=== PATIENT | male | born 1960 | race Caucasian/White ===

== ENCOUNTER 2025-02-19 10:47 | Emergency (ER) | payer MEDICAID, SELFPAY ==
[2025-02-19 10:50] VITALS: BMI 16.0
[2025-02-19 10:57] VITALS: BP 162/100; PULSE 93; RESP 16; TEMP 36.5; O2SAT 96
--- NOTE | 2025-02-19 11:07 | XR_ITS ---
Examination: Shoulder,right, 3 views Technique: Shoulder AP internal rotation, AP external rotation, Y view shoulder, 3 views Exam date and time :February 19, 2025 1109 hours INDICATIONS: Patient fell 4 weeks ago with injury of the shoulder, shoulder pain. FINDINGS: No fracture or dislocation Moderate osteoarthritis glenohumeral joint IMPRESSION: No fracture or dislocation
--- NOTE | 2025-02-19 11:12 | EDNOTE_ITS ---
<Statement entered by Geovanna Jackson MD - 02/19/25 17:57> As co-signing physician, I was present and available for consult prn. I concur with the plan and care as documented by the midlevel provider. Upper Extremity Injury RME/HPI General Chief Complaint: Extremity Injury, Upper Stated Complaint: BILATERAL SHOULDER PAIN Time Seen by Provider: 02/19/25 11:07 Source: patient Arrival date/time: 02/19/25 10:47 65-year-old male with no known medical history presents to the emergency room with a chief complaint of right-sided shoulder pain after a fall that occurred 1 month ago. Mode of arrival: ambulatory Limitations: no limitations Related Data Allergies Allergy/AdvReac Type Severity Reaction Status Date / Time No Known Allergies Allergy Verified 02/19/25 10:50 Review of Systems Review of Systems Systems Reviewed: All systems reviewed, normal except as documented Constitutional Constitutional: Reports system reviewed and no additional complaints, except as documented, Denies fatigue, Denies fever(s), Denies headache(s) and Denies weakness Eyes Eyes: Reports system reviewed and no additional complaints, except as documented, Denies blurry vision and Denies change in vision ENT Ears, Nose, Mouth, and Throat: Reports system reviewed and no additional complaints, except as documented, Denies otalgia, Denies headache(s), Denies nasal congestion, Denies throat swelling and Denies vertigo Cardiovascular Cardiovascular: Reports system reviewed and no additional complaints, except as documented, Denies chest pain, Denies dyspnea and Denies dyspnea on exertion Respiratory Respiratory: Reports system reviewed and no additional complaints, except as documented, Denies chest congestion, Denies cough, Denies dyspnea, Denies dyspnea on exertion and Denies wheezing Gastrointestinal Gastrointestinal: Reports system reviewed and no additional complaints, except as documented, Denies abdominal pain, Denies cramping, Denies nausea and Denies vomiting Genitourinary Genitourinary: Reports system reviewed and no additional complaints, except as documented, Denies dysuria and Denies hematuria Musculoskeletal Musculoskeletal: Reports system reviewed and no additional complaints, except as documented, Reports arthralgias, Denies back pain, Reports joint swelling and Reports limited range of motion Integumentary/Breasts Skin/Breast: Reports system reviewed and no additional complaints, except as documented and Denies wounds Neurologic Neurologic: Reports system reviewed and no additional complaints, except as documented, Denies confusion, Denies headache(s), Denies lack of coordination, Denies vertigo and Denies weakness Psychiatric Psychiatric: Reports system reviewed and no additional complaints, except as documented, Denies anxiety, Denies confusion, Denies depression, Denies paranoia, Denies suicidal ideation and Denies tactile hallucinations Endocrine Endocrine: Reports system reviewed and no additional complaints, except as documented and Denies fatigue Hematologic/Lymphatic Hematologic/Lymphatic: Reports system reviewed and no additional complaints, except as documented and Denies lymphadenopathy Allergic/Immunologic Allergic/Immunologic: Reports system reviewed and no additional complaints, except as documented, Denies throat swelling, Denies urticaria and Denies wheezing Past Medical History Social History SMOKING STATUS: Current every day smoker ED Exam General Limitations: Present no limitations General appearance: Present alert and in no apparent distress Head Head exam: Present atraumatic Eye Eye exam: Present normal appearance, PERRL and EOMI ENT ENT exam: Present normal exam, normal oropharynx and mucous membranes moist Neck Neck exam: Present normal inspection, full ROM and trachea midline Chest Chest inspection: Present normal inspection and symmetric chest wall rise Respiratory Respiratory exam: Present normal lung sounds bilaterally Cardiovascular Cardiovascular exam: Present regular rate, normal rhythm and normal heart sounds Abdominal Exam Abdominal exam: Present soft and normal bowel sounds Extremities Exam Extremities exam: Present normal inspection and full ROM Expanded Upper Extremity Exam Shoulder exam: Present tenderness and swelling; Absent full ROM Arm exam: Present normal inspection Elbow exam: Present normal inspection Forearm/Wrist exam: Present normal inspection Hand exam: Present normal inspection Vascular exam: Normal capillary refill Back Exam Back exam: Present normal inspection and full ROM Neurological Exam Neurological exam: Present alert, oriented X3 and CN II-XII intact Psychiatric Psychiatric exam: Present normal affect and normal mood Skin Skin exam: Present warm, dry, intact and normal color Course Quality Measures none Orders Category Date Time Status XR shoulder RT min 2V Stat Exams 02/19/25 11:07 Completed Ketorolac Inj [Toradol Inj] Med 02/19/25 11:07 Discontinued 30 mg IM X1 ONE Vital Signs Vital signs: Vital Signs Temperature 97.7 F 02/19/25 10:57 Pulse Rate 93 02/19/25 10:57 Respiratory Rate 16 02/19/25 10:57 Blood Pressure 162/100 H 02/19/25 10:57 Pulse Oximetry (%) 96 02/19/25 10:57 Oxygen Delivery Method Room Air 02/19/25 10:57 O2 saturation 96% within normal limits Extremity Injury MDM Narrative MDM Narrative:: 65-year-old male with no known medical history presents to the emergency room with a chief complaint of right-sided shoulder pain after a fall that occurred 1 month ago. Patient is hemodynamically stable and in no apparent distress Physical examination shows pain and tenderness to the patient's right shoulder. The patient has full range of motion but states there is point tenderness with palpation. X-ray of the right shoulder was completed and shows no fracture or dislocation but does show some moderate osteoarthritis of the glenohumeral joint Patient was discharged and educated to follow-up with primary care provider in the next 24 to 48 hours and return to the emergency room for any evidence of worsening signs or symptoms Patient data External records reviewed:: [facility] previous records Clinical information provided by:: patient Social determinants that could affect healthcare access:: none Patient has the following chronic illnesses:: No chronic illness How is presenting disease/condition affected by chronic disease/condition?: no chronic disease Evaluation data The following diagnostics were reviewed and interpreted by me:: lab results and radiology exam(s) Lab and/or radiology exams considered but not ordered:: Labs and radiology exams considered and ordered Interpretation Summary: Shoulder [id number]: No fracture or dislocation Moderate osteoarthritis glenohumeral joint IMPRESSION: No fracture or dislocation Medications / Prescriptions Medications or Prescriptions considered but not ordered:: Medication given Medication administrations:: Medication Administration History Discontinued Medications Ketorolac Tromethamine (Ketorolac Inj 60 Mg/2 Ml Vial) 30 mg IM X1 ONE Stop: 02/19/25 11:08 Last Admin: 02/19/25 11:34 Dose: 30 mg Documented By: DB Medication given Consultations Consultation(s) initiated? (list below): No Diagnosis Upper Extremity Injury Differential Diagnosis: other (Shoulder fracture/shoulder dislocation/arthritis/shoulder sprain) Most likely diagnosis given after review of the tests above:: Osteoarthritis of the shoulder Admission Indicated Admission indicated?: not indicated Admission Request Was there a request for admission?: No Disposition Plan Disposition Plan: Discharge Discharge Attestation Discharge Attestation: The patient and all family members were given an opportunity to ask questions and understood the discharge instructions. Discharge instructions specifically effects, indications for sooner follow up or return to the emergency department, and the expected course of current diagnosis. Patient condition: Stable Discharge Plan Plan Patient Disposition: HOME (Self Care) Disposition Comment: Stable Prescriptions/Referrals Referrals: Adolph Courtney MD [Primary Care Provider] - In 1 week Problem List Clinical Impression: OA (osteoarthritis) of shoulder Patient/Caregiver Discharge Instructions Education Materials: What Is Osteoarthritis?, ED Osteoarthritis Additional Instructions: Please follow-up with your primary care provider in the next 24 to 48 hours. X-ray of your shoulder was completed and only found osteoarthritis Please follow-up with your primary care provider for further management of this chronic condition For any evidence of worsening signs or symptoms return to the emergency room immediately Print Language: Yi Stand Alone Forms: Lisa Award Info., Patient Portal Info Letter PA/BUSINESS [employer] INSTRUCTOR Supervising Physician PA/MILTON Supervising Physician: Dr. JACKSON
[2025-02-19] MEDS: KETOROLAC INJ 60 MG/2 ML VIAL 30 MG IM (11:34)
--- NOTE | 2025-02-19 14:46 | PC.NURSE ---
no answer x 1 at 1445. checked outside and lobby.
--- NOTE | 2025-02-19 16:02 | PC.NURSE ---
no answer x 3 at 1500 and 1600 checked outside and lobby. patient left before dc papers
== END 2025-02-20 16:00 | disposition home or self-care (01) ==
PROVIDERS: Emergency Provider Emergency Medicine; PCP Family Medicine
DX: M19.011 Primary osteoarthritis, right shoulder (principal)
CPT/HCPCS: 73030; 96372; 99283; J1885

== ENCOUNTER 2025-06-21 08:04 | Inpatient (IN) | payer MEDICAID, SELFPAY ==
[2025-06-21] VITALS (12 sets, daily range): BP systolic 135–191; BP diastolic 91–111; PULSE 72–114; RESP 14–21; TEMP 36.3–37.1; O2SAT 92–98; BMI 13.6
--- NOTE | 2025-06-21 08:21 | PD.EDRME ---
Rapid Medical Screening Exam RME Arrival date/time: 06/21/25 08:04 CC: Food bolus HPI onset this morning after eating some food the patient is feels like he has something stuck in his throat . The patient is currently being worked up for a throat mass by ENT who he saw on June 18 and is scheduled for PET scan and biopsy. Patient is continues to be a smoker. Chief Complaint: Dental/Oral/Throat Time Seen by Provider: 06/21/25 08:07 Vital signs: Vital Signs Temperature 98.3 F 06/21/25 08:14 Pulse Rate 113 H 06/21/25 08:14 Respiratory Rate 20 06/21/25 08:14 Blood Pressure 156/111 H 06/21/25 08:14 Pulse Oximetry (%) 98 06/21/25 08:14 Oxygen Delivery Method Room Air 06/21/25 08:14
--- NOTE | 2025-06-21 08:22 | XR_ITS ---
Examination: CT chest with intravenous contrast CT soft tissue neck with intravenous contrast 2-D sagittal and coronal reconstructions Exam date and time: June 21, 2025 1130 hours INDICATIONS: Food stuck in the throat after eating today, history thyroidectomy CTDI:vol (mGy) 6.15 DLP: (mGycm) 316 Technique: Multiple axial sections of the thorax soft tissue neck have been obtained. Sections have been obtained, 3 mm slice thickness. Mediastinal and lung density settings have been obtained. Intravenous contrast administered, 60 cc Isovue-370. 2-D sagittal, coronal images obtained. Low dose protocols were performed. One or more of the following dose reduction techniques were used; automated exposure control, adjustment of the mA and/or KV according to patient size, use of iterative reconstruction technique. 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
[2025-06-21 09:06] LABS: Basophils # (Auto) 0.2 Thou/mm3 (0.0-0.2); Basophils % (Auto) 2 % (0-2.5); Eosinophils # (Auto) 0.1 Thou/mm3 (0.0-0.5); Eosinophils % (Auto) 0 % (0-10); Hematocrit 43.6 % (41.0-53.0); Hemoglobin 14.6 g/dL (13.5-16.0); Immature Granulocytes Auto 0.05 Thou/mm3 (0.00-0.00); Lymphocytes # (Auto) 2.7 Thou/mm3 (1.0-4.8); Lymphocytes % (Auto) 20 % (10-50); Mean Corpuscular HGB Conc 33.5 g/dl (31.0-37.0); Mean Corpuscular Hemoglobin 32.4 pg (25.0-35.0); Mean Corpuscular Volume 97 fL (80-100); Monocytes # (Auto) 1.4 Thou/mm3 (0.0-0.8); Monocytes % (Auto) 10 % (0-12); Neutrophils # (Auto) 9.3 Thou/mm3 (1.8-7.7); Neutrophils % (Auto) 68 % (37-80); Nucleated Red Blood Cell # 0.00 Thou/mm3 (0.00-0.00); Nucleated Red Blood Cell % 0 /100 WBC (0); Platelet Count 513 Thou/mm3 (140-440); RDW Standard Deviation 44.0 fL (35.1-43.9); Red Blood Count 4.51 Miln/mm3 (4.50-5.90); White Blood Count 13.7 Thou/mm3 (3.8-10.6)
[2025-06-21 09:22] LABS: INR 1.1 (0.9-1.3); Partial Thromboplastin Time 32.5 Seconds (22.0-36.0); Prothrombin Time 11.5 Seconds (9.0-12.2)
[2025-06-21 09:26] LABS: Alanine Aminotransferase 11 U/L (10-49); Albumin, Serum 4.3 gm/dL (3.4-4.8); Albumin/Globulin Ratio 1.5 (1.2-2.2); Alkaline Phosphatase 96 U/L (46-116); Anion Gap 12 (7-16); Aspartate Amino Transferase 12 U/L (0-34); BUN/Creatinine Ratio 10 Ratio (12-20); Bilirubin,Total 0.5 mg/dL (0.3-1.2); Blood Urea Nitrogen 8 mg/dL (9-23); Calcium 10.3 mg/dL (8.3-10.6); Calcium (Corrected) 10.3 mg/dL (8.5-10.1); Carbon Dioxide 30.0 mMol/L (20.0-31.0); Chloride 98 mMol/L (98-107); Creatinine (Component) 0.8 mg/dL (0.6-1.3); Estimated Creatinine Clearance 55.1 mL/min (>60); Globulin 2.9 gm/dL (2.3-3.5); Glucose 128 mg/dL (74-106); Osmolality,Calculated 279 (275-295); Potassium 3.6 mMol/L (3.4-5.1); Sodium 140 mMol/L (136-145); Total Protein 7.2 gm/dL (5.7-8.2); eGFR > 60 See Note
--- NOTE | 2025-06-21 10:52 | PD.EDDENTL ---
ED Dental RME/HPI General Chief complaint: Dental/Oral/Throat Stated complaint: Chicken stuck in throat, throat CA Time Seen by Provider: 06/21/25 08:07 Arrival date/time: 06/21/25 08:04 RME / HPI RME / HPI Narrative: DR. JACKSON MAIN ED EVALUATION: 65-year-old male with past medical history of hypertension, chronic obstructive pulmonary disease (COPD), and prior thyroidectomy presents to the Emergency Department with complaint of feeling like something is stuck in his throat that began this morning after eating. He is currently being evaluated for a possible throat mass by ENT, who he saw on June 18, with a PET scan and biopsy pending. Patient is a current daily smoker. Denies alcohol or substance use. Related Data Allergies Allergy/AdvReac Type Severity Reaction Status Date / Time No Known Allergies Allergy Verified 06/21/25 08:10 Review of Systems Review of Systems Systems Reviewed: All systems reviewed, normal except as documented Past Medical History Past Medical History CARDIAC: Positive Hypertension RESPIRATORY: Positive Chronic Obstructive Pulmonary Disease (COPD) Surgical History SURGICAL: Positive Thyroidectomy Social History SMOKING STATUS: Current every day smoker SUBSTANCE USE: does not use ALCOHOL: Never ED Exam Narrative Physical exam: GENERAL APPEARANCE: alert and oriented x 4, well-developed, well-nourished, no acute distress, thin appearing VITALS: All vitals were reviewed and the pulse ox is 94% on room air, which is normal according to my interpretation. HEENT: Normocephalic, atraumatic; pupils equal, round, reactive to light; EOMI; mucous membranes pink, moist; oropharynx clear NECK: Supple LUNGS: CTABL; no wheezes, no rales, no rhonchi HEART: Regular rate, regular rhythm; normal S1, S2; no murmurs ABDOMEN: non distended; normal BS; soft, no tenderness, no guarding, no rebound; no masses, no organomegaly, no hernia BACK: no CVA tenderness EXTREMITIES: atraumatic; no edema NEUROLOGIC: awake; alert and oriented x4; cranial nerves II-XII grossly intact; no focal sensory or motor deficits PSYCHIATRIC: appropriate mood and affect SKIN: warm, dry, normal color; no rashes Course Quality Measures none Orders Category Date Time Status CT Screening NOW Care 06/21/25 08:22 Active Saline [Insert IV] NOW Care 06/21/25 08:[address] soft tissue neck chest w Stat Exams 06/21/25 08:22 Completed CBC Stat Lab 06/21/25 08:30 Completed CMP [Comprehensive Metabolic Panel] Stat Lab 06/21/25 08:30 Completed PT [Prothrombin Time with INR] Stat Lab 06/21/25 08:30 Completed PTT [Partial Thromboplastin Time] Stat Lab 06/21/25 08:30 Completed Morphine Inj Med 06/21/25 11:15 Discontinued 5 mg IVP X1 ONE Ondansetron Inj [Zofran Inj] Med 06/21/25 11:15 Discontinued 4 mg IVP X1 ONE Sodium Chloride 0.9% 1000 ml [Ns] 1,000 ml Med 06/21/25 11:15 Discontinued IV 999 mls/hr Vital Signs Vital signs: Vital Signs Temperature 98.3 F 06/21/25 08:14 Pulse Rate 113 H 06/21/25 08:14 Respiratory Rate 20 06/21/25 08:14 Blood Pressure 156/111 H 06/21/25 08:14 Pulse Oximetry (%) 98 06/21/25 08:14 Oxygen Delivery Method Room Air 06/21/25 08:14 Dental / Oral MDM Narrative MDM Narrative:: Nadine Preciado am scribing for and in the presence of Dr. Jackson. Patient data External records reviewed:: [facility] previous records Clinical information provided by:: patient Social determinants that could affect healthcare access:: other (specify) (Patient is a current daily smoker.) Patient has the following chronic illnesses:: Hypertension, chronic obstructive pulmonary disease (COPD), and prior thyroidectomy. He is currently being evaluated for a possible throat mass by ENT, who he saw on June 18, with a PET scan and biopsy pending. Patient is a current daily smoker. Denies alcohol or substance use. How is presenting disease/condition affected by chronic disease/condition?: exacerbated by Evaluation data The following diagnostics were reviewed and interpreted by me:: lab results and radiology exam(s) Lab and/or radiology exams considered but not ordered:: none Interpretation Summary: Procedure(s): CT soft tissue neck chest w Accession Number(s): [id number] cc: Zac Bowden NP; Kal Will MD; Mikael Alex~ Examination: CT chest with intravenous contrast CT soft tissue neck with intravenous contrast 2-D sagittal and coronal reconstructions Exam date and time: June 21, 2025 1130 hours INDICATIONS: Food stuck in the throat after eating today, history thyroidectomy CTDI:vol (mGy) 6.15 DLP: (mGycm) 316 Technique: Multiple axial sections of the thorax soft tissue neck have been obtained. Sections have been obtained, 3 mm slice thickness. Mediastinal and lung density settings have been obtained. Intravenous contrast administered, 60 cc Isovue-370. 2-D sagittal, coronal images obtained. Low dose protocols were performed. One or more of the following dose reduction techniques were used; automated exposure control, adjustment of the mA and/or KV according to patient size, use of iterative reconstruction technique. 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 Dictated By: Kal Will MD Medications / Prescriptions Medications or Prescriptions considered but not ordered:: none Medication administrations:: Medication Administration History Discontinued Medications Sodium Chloride (Ns) 1,000 mls @ 999 mls/hr IV .Q1H1M ONE Stop: 06/21/25 12:15 Last Infusion: 06/21/25 12:44 Dose: Infused Documented By: Admin: 06/21/25 11:42 Dose: 999 mls/hr Documented By: WENDY Morphine Sulfate (Morphine Sulf Inj 10 Mg/Ml Vial) 5 mg IVP X1 ONE Stop: 06/21/25 11:16 Last Admin: 06/21/25 11:39 Dose: 5 mg Documented By: WENDY Ondansetron HCl (Ondansetron Inj 2 Mg/Ml Inj 2 Ml) 4 mg IVP X1 ONE Stop: 06/21/25 11:16 Last Admin: 06/21/25 11:39 Dose: 4 mg Documented By: MM see above if any Consultations Consultation(s) initiated? (list below): Yes Consultation #1 (Physician, Specialty, Details): Discussed test HPI, PMHx, lab, radiology results and/or management with Dr. Kennedy. Will do endoscopy and consult an admission to the hospitalist. Time: 13:35 Consultation #2 (Physician, Specialty, Details): Discussed test HPI, PMHx, lab, radiology results and/or management with Dr. Myles. Will do biopsy. Time: 13:37 Consultation #3 (Physician, Specialty, Details): Discussed test HPI, PMHx, lab, radiology results and/or management with resident working with the hospitalist. Will admit for further evaluation and management. Accepts patient for admission. Time: 13:40 Diagnosis Dental Differential Diagnosis: other (esophageal obstruction, oropharyngeal mass, GERD, esophageal carcinoma) Most likely diagnosis given after review of the tests above:: Right lung mass Dysphagia Obstruction of esophagus Admission Indicated Admission indicated?: indicated Admission Request Was there a request for admission?: Yes Admission Attestation Admission request attestation: Discussed case with [] from Hospitalist service regarding admission. Discussed patients ED course, exam findings, labs, and radiology results. The Hospitalist [agrees,declines] to accept the patient for admission. Disposition Plan Disposition Plan: Admit Discharge Plan Plan Patient Disposition: Admit Acute Care w/in Hospital Prescriptions/Referrals Referrals: Mikael Alex FNP-C [Primary Care Provider] - In 1 week Problem List Clinical Impression: Mass of right lung, Dysphagia, Obstruction of esophagus Patient/Caregiver Discharge Instructions Print Language: Lao Stand Alone Forms: Lisa Award Info., Patient Portal Info Letter
[2025-06-21] MEDS: MORPHINE SULF INJ 10 MG/ML VIAL 5 MG IVP ×2 (11:39→14:04)
[2025-06-21] MEDS: ONDANSETRON INJ 2 MG/ML INJ 2 ML 4 MG IVP ×2 (11:39→14:04)
[2025-06-21] MEDS: SODIUM CHLORIDE 0.9% 1000 ML 1,000 ML 999 ML IV (11:42)
--- NOTE | 2025-06-21 14:45 | ESHP_ITS ---
<Statement entered by Antonette Ogden MD - 06/21/25 19:54> I have reviewed the note and agree with the resident's assessment & plan with exceptions as below. I have personally reviewed labs, imaging, home meds/prior records, examined the patient, formulated and discussed management plan with the IM team. #Dysphagia secondary to #? Pancoast tumor, R side #Shoulder pain Plan: ? CT guided biopsy soft tissue neck tomorrow ? NPO now ? Accu checks q6h ? GI consult for EGD ? Coag panel for tomorrow ? Speech therapy ? Morphine 1 mg IV every 4 hours, and Dilaudid IV for breakthrough or severe pain #Hypercalcemia 10.3 Could be in setting of malignancy, however it is only mildly elevated Could be related to dehydration Plan: ? PTH ? Trend with CMP #Leukocytosis Could be in setting of malignancy or reactive process Plan: ? Trend CBC #Anorexia BMI 13 Plan: ? RD consulted, appreciate recs ? Trend magnesium and phosphorus ? Folate 1 mg IV daily ? Thiamine 250 mg IV x 1, followed by 100 mg IV every day ? D5 half NS 75 cc/hour ? Accu-Cheks every 6 hours #Tobacco use #Nicotine Dependence Plan: ? Nicotine 21 mg patch Antonette Ogden, PGY-2 Internal Medicine Documentation for date of: 06/21/25 HPI History of Present Illness History of present illness: Mr. Alexandre is a 65-year-old male with past medical history of hypertension, COPD (not on O2 at home), and current smoker who presented to ED for dysphagia. Admitted for concern for pancoast tumor. Patient reports he lost his voice and had right shoulder shooting pains down RUE onset around 07/2024 at the same time. He states these symptoms have been progressively worsening since. He states he now has difficulty using his right hand due to the weakness and paresthesias, and difficulty using the RUE due to the pain. also notes that she has noticed drooping of the right side of his face for the past year. She states that it intermittently improves, but has only noticed improvement about 3-4 times in the past year. Patient also reports he feels he looks sandoval and has also been having night sweats. He feels he may be sweating slightly more on the left compared to the right, when he is feeling diaphoretic. He notes cough secondary to COPD, but denies hemoptysis. He started noticing dysphagia about 2-3 weeks ago, but had significantly worsened yesterday when he was eating fried chicken. He states he is also having difficulty with swallowing fluids. Today he notes numbness of his RUE, especially the 4th and 5th fingers. He recently extablished care with Dr. Chelsey Frost, ENT, at [facility]. They were planning to have workup done later this month. He has not had an EGD yet. ED course: Vitals: 98.3F, HR 113, BP 156/111, RR 20, O2 ranging 92-98% on RA Labs: WBC 13.7 Plt 513, NV 11.5, INR 1.1, PTT 32.5, Corrected Calcium 10.3 Imaging: - R shoulder XR unremarkable. - Soft tissue neck CT: 5.2 x 6.3 cm tumor mass right lung apex, pancoast type tumor extending into the lower neck, destroying portions of the C7, T1, T2 vertebral bodies. This mass displaces the esophagus to the left and displaces the trachea to the left Treatments: Consulted PMH: HTN, COPD (not on O2 at home) PSH: Tonsillectomy PFH: - Mother: lupus, ESRD on HD - Father: bladder cancer - Brothers: HTN - Maternal grandfather: lung cancer black lung from occupational exposure Medications: amlodipine 5 mg po QD, Gate 5 mg po PRN, clindamycin 75 mg liquid Allergies: bee sting. NKDA. Social Hx: - Tobacco use: 1 pack/3 days since approximately age 21s - Alcohol: Heavy drinker in the past. Has had about 3-4 drinks since January 2025 - Drugs: Marijuana for pain currently. Everything in teenage years until age 20-30s. 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 Has not worked in the past year due to RUE pain and weakness. Possible asbestos exposure at work, per patient and . - Housing: lives with and cat Pharmacy: [facility] [address] Review of Systems Review of Systems Narrative Review of Systems: All systems reviewed, normal except as documented. Exam Vital Signs Temp Pulse Resp BP Pulse Ox O2 Del Method 98.4 F 85 20 135/96 H 95 Room Air 06/21/25 14:10 06/21/25 14:10 06/21/25 14:10 06/21/25 14:10 06/21/25 14:10 06/21/25 14:10 Narrative Exam GENERAL: A&OX3. No acute distress. Not diaphoretic. HEENT: Normocephalic. No scleral icterus. EOMI CV: Regular rate and rhythm. S1 and S2 heard. No murmurs. PULM: No accessory muscle use. CTAB, but quiet breath sounds. No wheezing or crackles. ABDOMEN: Soft and non-distended. No tenderness to palpation of all quadrants. No rebound or guarding. EXTREMITIES: Pain with palpation of right shoulder. No lower extremity edema. SKIN: Warm and dry. NEURO: No aphasia. Mild ptosis of right eye, but CN II-XII otherwise grossly intact. No asymmetry of smile. Sensation present, but decreased on right upper extremity compared to left. Sensation present and equal bilaterally on face and lower extremities. 5/5 staff consultant strength of left hand. Patient unable to make fist on right hand due to weakness. 5/5 strength of lower extremities and shoulder shrug bilaterally. Patient able to move forearms against resistance bilaterally. PSYCH: Cooperative with exam. Results: Labs 06/22/25 04:53 06/22/25 04:53 Labs: Short CBC 06/21/25 Range/Units 08:30 WBC 13.7 H (3.8-10.6) Thou/mm3 Hgb 14.6 (13.5-16.0) g/dL Hct 43.6 (41.0-53.0) % Plt Count 513 H (140-440) Thou/mm3 BMP 06/21/25 08:30 Sodium 140 Potassium 3.6 Chloride 98 Carbon Dioxide 30.0 BUN 8 L Creatinine 0.8 Glucose 128 H Calcium 10.3 Liver Function 06/21/25 Range/Units 08:30 Total Bilirubin 0.5 (0.3-1.2) mg/dL AST 12 (0-34) U/L ALT 11 (10-49) U/L Alkaline Phosphatase 96 (46-116) U/L Albumin 4.3 (3.4-4.8) gm/dL Quality Measures Quality Measures none Medications Home Medications and Allergies Home Medications ?Medication ?Instructions ?Recorded ?Confirmed ?Type amlodipine 5 mg tablet 5 mg PO QDAY 06/21/25 History hydrocodone 5 mg-acetaminophen 325 1 tab PO Q6H PRN pa in 06/21/25 06/21/25 History mg tablet Allergies Allergy/AdvReac Type Severity Reaction Status Date / Time No Known Allergies Allergy Verified 06/21/25 08:10 Visit Medications Discontinued Medications Sodium Chloride (Ns) 1,000 mls @ 999 mls/hr IV .Q1H1M ONE Stop: 06/21/25 12:15 Last Infusion: 06/21/25 12:44 Dose: Infused Morphine Sulfate (Morphine Sulf Inj 10 Mg/Ml Vial) 5 mg IVP X1 ONE Stop: 06/21/25 11:16 Last Admin: 06/21/25 11:39 Dose: 5 mg Morphine Sulfate (Morphine Sulf Inj 10 Mg/Ml Vial) 5 mg IVP X1 ONE Stop: 06/21/25 13:43 Last Admin: 06/21/25 14:04 Dose: 5 mg Ondansetron HCl (Ondansetron Inj 2 Mg/Ml Inj 2 Ml) 4 mg IVP X1 ONE Stop: 06/21/25 11:16 Last Admin: 06/21/25 11:39 Dose: 4 mg Ondansetron HCl (Ondansetron Inj 2 Mg/Ml Inj 2 Ml) 4 mg IVP X1 ONE Stop: 06/21/25 13:43 Last Admin: 06/21/25 14:04 Dose: 4 mg Assessment & Plan Plan Assessment Mr. Alexandre is a 65-year-old male with past medical history of hypertension and COPD (not on O2 at home) who presented to ED for dysphagia. Admitted for concern for pancoast tumor. #Pancoast tumor with associated tracheal mass effect and vertebral destruction secondary to the tumor #Dysphagia, likely 2/2 Pancoast tumor Onset 2-3 weeks ago, but significantly worsened 8/6 while eating fried chicken. Patient unable to swallow solids or liquids. Patient follows with Dr. Chelsey Miner, ENT at [facility] in [place], [place]. Soft tissue neck CT: 5.2 x 6.3 cm tumor mass right lung apex, pancoast type tumor extending into the lower neck, destroying portions of the C7, T1, T2 vertebral bodies. This mass displaces the esophagus to the left and displaces the trachea to the left - CT guided biopsy ordered, f/u - GI consulted, appreciate recs - NPO diet - Ordered TSH, f/u - Dietitian consulted, appreciate recs - Speech therapy consulted, appreciate recs #RUE pain and weakness, likely 2/2 Pancoast tumor Onset 07/2024 with radiating pains down RUE and weakness of right hand. Progressively worsening since. Likely 2/2 compression of nerves by pancoast tumor. - Pain management as needed - Referral for PT/OT ordered - Continue with management and workup of pancoast tumor #Hypercalcemia Likely 2/2 malignancy. Corrected Ca of 10.3. - Trend calcium levels - Ordered TSH, f/u #Thrombophilia Likely 2/2 malignancy. Coag panel in ED was within normal limits. - Repeat coag panel in AM. - Trend CBC #Hypertension SBP up to 190s. On amlodipine 5 mg po QD at home. - Hold home amlodipine for now, as patient is NPO - labetalol 5 mg IV q2h PRN if SBP>175. Hold if HR<65. #Tobacco use disorder Discussed smoking cessation with patient. Currently smoking about 1 pack per 3 days. - Nicotine patch offered Health maintenance Disposition: Med Surg GI Prophylaxis: Diet: NPO DVT prophylaxis: Lovenox CODE STATUS: DNI Case discussed with my attending Dr. Angela, and my senior resident, Dr. Melvi King, OMS4 Attending Provider Attestation/Addendum I have discussed and was present for the essential components of the history, physical examination, diagnosis, and treatment plan with the resident. I agree with the patient's care as documented by the resident and amended herein by me. Christian Angela DO. Although this document has been carefully reviewed, there may still be some phonetic and other typographical errors. These errors are purely grammatical due to imperfections in the software program and should not be construed in any way to compromise the substance of the patient's medical care during this visit.
[2025-06-21] MEDS: SODIUM CHLORIDE 0.9% 1000 ML 1,000 ML 75 ML IV (15:58)
[2025-06-21] MEDS: LABETALOL INJ 5 MG/ML VIAL 20 ML IVP (18:19)
[2025-06-21] MEDS: ALBUTEROL/IPRATROPIUM (Duoneb) RT SOL 3 ML NEBU INH (19:01)
[2025-06-21] MEDS: DEXTROSE 5%-NS 1,000 ML 75 ML IV (20:10)
[2025-06-21 20:23] LABS: Magnesium 1.9 mg/dL (1.6-2.6); Phosphorous 4.9 mg/dL (2.4-5.1)
[2025-06-21] MEDS: THIAMINE INJ 250 MG in SODIUM CHLORIDE 0.9% 100 ML 205 MG IV (20:47)
[2025-06-21] MEDS: FOLIC ACID INJ 1 MG/0.2 ML IVP (20:50)
[2025-06-21] MEDS: MORPHINE SULF INJ 10 MG/ML VIAL IVP (20:59)
--- NOTE | 2025-06-21 21:57 | PD.IMCONS ---
HPI Data of Consult Requesting Physician: Jeúss Angela DO Primary Care Provider: NEGRA Yousif Consult Narrative Reason for consult: Dysphagia History of present illness: 65-year-old male presented to the emergency room with sudden onset of dysphagia Workup in the emergency room revealed via soft tissues CT scan with contrast 5.2 x 6.3 cm right lung apex mass destroying a part of the CC 7 T1-T2 displaces the esophagus and the trachea to the left patient was subsequently admitted Patient has a previous history of thyroidectomy and his calcium level is 10.3 Patient has a history of essential hypertension COPD and thyroidectomy cc:: cc: Jesús Angela DO Review of Systems Review of Systems Systems Reviewed: All systems reviewed, normal except as documented Past Medical History Surgical History OTHER SURGICAL HX: As in the history of present illness Meds Home Medications and Allergies Allergies Allergy/AdvReac Type Severity Reaction Status Date / Time No Known Allergies Allergy Verified 06/21/25 08:10 Exam Vital Signs Temp Pulse Resp BP Pulse Ox O2 Del Method 97.8 F 72 14 158/91 H 95 Room Air 06/21/25 20:00 06/21/25 20:00 06/21/25 20:00 06/21/25 20:00 06/21/25 20:00 06/21/25 20:00 Routine Respiratory Exam Comments: Normal to auscultation Routine Abdominal Exam Comments: Soft nontender Results Labs 06/23/25 05:10 06/23/25 05:10 Labs: Short CBC 06/21/25 Range/Units 08:30 WBC 13.7 H (3.8-10.6) Thou/mm3 Hgb 14.6 (13.5-16.0) g/dL Hct 43.6 (41.0-53.0) % Plt Count 513 H (140-440) Thou/mm3 BMP 06/21/25 08:30 Sodium 140 Potassium 3.6 Chloride 98 Carbon Dioxide 30.0 BUN 8 L Creatinine 0.8 Glucose 128 H Calcium 10.3 Liver Function 06/21/25 Range/Units 08:30 Total Bilirubin 0.5 (0.3-1.2) mg/dL AST 12 (0-34) U/L ALT 11 (10-49) U/L Alkaline Phosphatase 96 (46-116) U/L Albumin 4.3 (3.4-4.8) gm/dL Assessment and Plan Additional Assessment & Plan Additional Plan: # Right lung apex mass because of dysphagia by pushing the trachea to the left However patient also has a history of thyroidectomy might have scar tissue causing stricture of the esophagus in addition to the above findings Suggestions CT-guided biopsy of the right apex mass of the right lung N.p.o. midnight tonight Fiberoptic esophagogastroduodenoscopy with possible biopsy possible esophageal dilatation scheduled for tomorrow After endoscopy for nutritional support patient may need a PEG tube as the trachea is pushed to the left side Other medical problems include Mass right lung in the apex CT-guided biopsy by IR Essential hypertension COPD Status post thyroidectomy Thank you very much for the opportunity to participate in care of this patient
--- NOTE | 2025-06-21 23:30 | PC.NURSE ---
MD Kennedy came and speak to the pts, explained the procedure for EGD in AM, pt verbalized understanding and wants to signed the consent in AM.
[2025-06-22] VITALS (27 sets, daily range): BP systolic 135–188; BP diastolic 74–104; PULSE 64–87; RESP 15–27; TEMP 36.3–37.1; O2SAT 92–100; BMI 13.3
[2025-06-22] MEDS: HYDROmorphone INJ 2 MG/ML VIAL 0.5 MG IVP ×4 (00:33→19:58)
[2025-06-22 06:07] LABS: Basophils # (Auto) 0.1 Thou/mm3 (0.0-0.2); Basophils % (Auto) 1 % (0-2.5); Eosinophils # (Auto) 0.1 Thou/mm3 (0.0-0.5); Eosinophils % (Auto) 1 % (0-10); Hematocrit 35.3 % (41.0-53.0); Hemoglobin 11.9 g/dL (13.5-16.0); Immature Granulocytes Auto 0.02 Thou/mm3 (0.00-0.00); Lymphocytes # (Auto) 2.5 Thou/mm3 (1.0-4.8); Lymphocytes % (Auto) 28 % (10-50); Mean Corpuscular HGB Conc 33.7 g/dl (31.0-37.0); Mean Corpuscular Hemoglobin 32.9 pg (25.0-35.0); Mean Corpuscular Volume 98 fL (80-100); Monocytes # (Auto) 0.9 Thou/mm3 (0.0-0.8); Monocytes % (Auto) 11 % (0-12); Neutrophils # (Auto) 5.1 Thou/mm3 (1.8-7.7); Neutrophils % (Auto) 58 % (37-80); Nucleated Red Blood Cell # 0.00 Thou/mm3 (0.00-0.00); Nucleated Red Blood Cell % 0 /100 WBC (0); Platelet Count 357 Thou/mm3 (140-440); RDW Standard Deviation 44.4 fL (35.1-43.9); Red Blood Count 3.62 Miln/mm3 (4.50-5.90); White Blood Count 8.7 Thou/mm3 (3.8-10.6)
[2025-06-22 06:17] LABS: Glucose Estimated Average 111 mg/dL (80-131); Hemoglobin A1C 5.5 % Hgb (4.8-6.0)
[2025-06-22 06:23] LABS: INR 1.1 (0.9-1.3); Partial Thromboplastin Time 31.4 Seconds (22.0-36.0); Prothrombin Time 11.5 Seconds (9.0-12.2)
[2025-06-22 06:30] LABS: Parathyroid Hormone Intact 21.4 pg/ml (18.5-88.0)
[2025-06-22 06:57] LABS: Alanine Aminotransferase 7 U/L (10-49); Albumin, Serum 3.6 gm/dL (3.4-4.8); Albumin/Globulin Ratio 1.6 (1.2-2.2); Alkaline Phosphatase 74 U/L (46-116); Anion Gap 11 (7-16); Aspartate Amino Transferase 10 U/L (0-34); BUN/Creatinine Ratio 15 Ratio (12-20); Bilirubin,Total 0.4 mg/dL (0.3-1.2); Blood Urea Nitrogen 9 mg/dL (9-23); Calcium 9.2 mg/dL (8.3-10.6); Calcium (Corrected) 9.5 mg/dL (8.5-10.1); Carbon Dioxide 29.2 mMol/L (20.0-31.0); Cardiac Risk Estimate 2.8 RATIO (4.0-6.7); Chloride 102 mMol/L (98-107); Cholesterol 140 mg/dL (132-200); Creatinine (Component) 0.6 mg/dL (0.6-1.3); Estimated Creatinine Clearance 71.8 mL/min (>60); Globulin 2.3 gm/dL (2.3-3.5); Glucose 101 mg/dL (74-106); HDL Cholesterol 50 mg/dL (40-60); LDL Cholesterol,Calculated 72 mg/dL (0-130); Magnesium 2.0 mg/dL (1.6-2.6); Osmolality,Calculated 281 (275-295); Phosphorous 3.8 mg/dL (2.4-5.1); Potassium 3.4 mMol/L (3.4-5.1); Sodium 142 mMol/L (136-145); Thyroid Stimulating Hormone 5.21 uIU/mL (0.55-4.78); Total Protein 5.9 gm/dL (5.7-8.2); Triglycerides 91 mg/dL (30-150); eGFR > 60 See Note
[2025-06-22] MEDS: ALBUTEROL/IPRATROPIUM (Duoneb) RT SOL 3 ML NEBU INH ×2 (07:09→22:36)
[2025-06-22 08:01] LABS: Free T4 (Free Thyroxine) 1.08 ng/dL (0.89-1.76)
--- NOTE | 2025-06-22 08:10 | ESPR_ITS ---
<Statement entered by Antonette Ogden MD - 06/23/25 15:32> I have reviewed the note and agree with the resident's assessment & plan with exceptions as below. I have personally reviewed labs, imaging, home meds/prior records, examined the patient, formulated and discussed management plan with the IM team. Patient examined at bedside today. No acute overnight events. Patient to get CT-guided biopsy of lung today and EGD today. Dietitian consulted, appreciate recommendations. Will continue with multivitamin supplementation for patient as patient is anorexic. Repeat hematology and chemistry in AM. Hypercalcemia improving, PTH seem to be low within normal limits, however this may indicate that hypercalcemia may be related to dehydration or malignant process. Antonette Ogden, PGY-2 Internal Medicine Documentation for date of: 06/22/25 Subjective Subjective Interval history: Patient was examined at bedside. No acute events overnight. Patient denies any new concerns this morning, but notes ongoing right shoulder and upper extremity pain. He denies chest pain or shortness of breath. Denies nausea or vomiting. Patient was taken to have biopsy done this morning during examination. Exam Vital Signs Temp Pulse Resp BP Pulse Ox O2 Del Method 97.5 F 74 16 158/74 H 98 Room Air 06/22/25 04:00 06/22/25 07:09 06/22/25 07:09 06/22/25 04:00 06/22/25 07:09 06/22/25 04:00 Narrative Exam GENERAL: A&OX3. Thin male. No acute distress. Not diaphoretic. HEENT: Normocephalic. No scleral icterus. EOMI CV: Regular rate and rhythm. S1 and S2 heard. No murmurs. PULM: No accessory muscle use. CTAB, but quiet breath sounds. No wheezing or crackles. ABDOMEN: Soft and non-distended. No tenderness to palpation of all quadrants. No rebound or guarding. EXTREMITIES: Pain with palpation of right shoulder. No lower extremity edema. SKIN: Warm and dry. NEURO: No aphasia. Mild ptosis of right eye. No asymmetry of smile. PSYCH: Cooperative with exam. Objective Labs 06/23/25 05:10 06/23/25 05:10 Labs: Laboratory Results - last 24 hr 06/21/25 06/22/25 08:30 04:53 WBC 13.7 H 8.7 RBC 4.51 3.62 L Hgb 14.6 11.9 L D Hct 43.6 35.3 L MCV 97 98 MCH 32.4 32.9 MCHC 33.5 33.7 RDW Std Deviation 44.0 H 44.4 H Plt Count 513 H 357 D Neut % (Auto) 68 58 Lymph % (Auto) 20 28 [place] % (Auto) 10 11 Eos % (Auto) 0 1 Baso % (Auto) 2 1 Neut # (Auto) 9.3 H 5.1 Lymph # (Auto) 2.7 2.5 [place] # (Auto) 1.4 H 0.9 H Eos # (Auto) 0.1 0.1 Baso # (Auto) 0.2 0.1 Immature Gran # (Auto) 0.05 H 0.02 H Absolute Nucleated RBC 0.00 0.00 Immature Gran % 0 0 Nucleated RBC % 0 0 PT 11.5 11.5 INR 1.1 1.1 APTT 32.5 31.4 Sodium 140 142 Potassium 3.6 3.4 Chloride 98 102 Carbon Dioxide 30.0 29.2 Anion Gap 12 11 BUN 8 L 9 Creatinine 0.8 0.6 Estim Creat Clear Calc 55.1 L 71.8 eGFR > 60 > 60 BUN/Creatinine Ratio 10 L 15 Glucose [address] Glu mg/dL 111 Hemoglobin A1c 5.5 Calculated Osmolality 279 281 Calcium 10.3 9.2 Corrected Calcium 10.3 H 9.5 Phosphorus 4.9 3.8 Magnesium 1.9 2.0 Total Bilirubin 0.5 0.4 AST 12 10 ALT 11 7 L Alkaline Phosphatase 96 74 D Total Protein 7.2 5.9 Albumin 4.3 3.6 D Globulin 2.9 2.3 Albumin/Globulin Ratio 1.5 1.6 Triglycerides 91 Cholesterol 140 LDL Cholesterol, Calc 72 HDL Cholesterol 50 Cholesterol/HDL Ratio 2.8 L TSH 5.21 H Free T4 1.08 PTH Intact 21.4 Quality Measures Quality Measures none Assessment & Plan Assessment Current Active Medications: Generic Name Dose Route Start Last Admin Trade Name Freq PRN Reason Stop Dose Admin Acetaminophen 650 mg 06/21/25 14:47 Acetaminophen 325 Mg Tablet PO 07/21/25 14:46 Q6H PRN Fever >100.4 or pain 1-3 Albuterol/Ipratropium 3 ml 06/21/25 19:00 06/22/25 07:09 Albuterol/Ipratropium (Duoneb) Rt Mindy 3 Ml Nebu INH 07/21/25 18:59 3 ml [id number] ERICA Administration Bisacodyl 10 mg 06/21/25 14:52 Bisacodyl 10 Mg Supp [place] 07/21/25 14:51 QDAY PRN Constipation Protocol Dextrose 25 ml 06/21/25 14:52 Dextrose 50%-Water Inj 50 Ml Syringe IV 07/21/25 14:51 Q15MIN PRN BG 50-70 responsive npo pt Dextrose 50 ml 06/21/25 14:52 Dextrose 50%-Water Inj 50 Ml Syringe IV 07/21/25 14:51 Q15MIN PRN BG <50 OR BG <70 & pt unresponsive Enoxaparin Sodium 40 mg 06/22/25 09:00 06/22/25 08:03 Enoxaparin Sod Inj 40 Mg/0.4 Ml Syringe SC 07/06/25 08:59 Not Given QDAY ERICA Folic Acid 1 mg 06/21/25 19:50 06/21/25 20:50 Folic Acid Inj 1 Mg/0.2 Ml IVP 07/21/25 19:49 1 mg QDAY ERICA Administration Glucagon 1 mg 06/21/25 14:52 Glucagon Inj 1 Mg Vial IM Q15MIN PRN BG <70, and no IV access Hydromorphone HCl 0.5 mg 06/21/25 14:52 06/22/25 06:02 Hydromorphone Inj 2 Mg/Ml Vial IVP 06/26/25 14:51 0.5 mg Q4H PRN Administration Pain 7-10 or breakthrough Dextrose/Sodium Chloride 1,000 mls @ 75 mls/hr 06/21/25 19:45 06/21/25 20:10 D5-Ns IV 07/21/25 19:44 75 mls/hr .[id number] ERICA Administration Labetalol HCl 5 mg 06/21/25 16:43 06/21/25 18:19 Labetalol Inj 5 Mg/Ml Vial 20 Ml IVP 07/21/25 16:44 5 mg Q2H PRN Administration Give if SBP>175, hold if HR<65 Morphine Sulfate 1 mg 06/21/25 14:52 06/21/25 20:59 Morphine Sulf Inj 10 Mg/Ml Vial IVP 06/26/25 14:51 1 mg Q4H PRN Administration PAIN SCALE 4-6 (Moderate Nicotine 14 mg 06/21/25 14:57 Nicotine Patch 14 Mg/24 Hr Patch.Td24 TOP 07/21/25 14:59 QDAY PRN nicotine craving Pantoprazole Sodium 40 mg 06/22/25 09:00 Pantoprazole Inj 40 Mg Vial IVP 07/22/25 08:59 QDAY ERICA Thiamine HCl 100 mg 06/22/25 09:00 Thiamine Inj 100 Mg/Ml Vial 2 Ml IV 07/22/25 08:59 QDAY ERICA Plan Assessment Mr. Alexandre is a 65-year-old male with past medical history of hypertension and COPD (not on O2 at home) who presented to ED for dysphagia. Admitted for concern for pancoast tumor. #? Pancoast tumor #Dysphagia, likely 2/2 Pancoast tumor Onset 2-3 weeks ago, but significantly worsened 06/20 while eating fried chicken. Patient unable to swallow solids or liquids. Patient follows with Dr. Chelsey Miner, ENT at [facility] in [place], [place]. Soft tissue neck CT: 5.2 x 6.3 cm tumor mass right lung apex, pancoast type tumor extending into the lower neck, destroying portions of the C7, T1, T2 vertebral bodies. This mass displaces the esophagus to the left and displaces the trachea to the left Plan: - CT guided biopsy with GI today, f/u results - EGD with GI today, flu results - Consider PEG tube after biopsy, per GI recs. Will need to monitor for refeeding syndrome when re-introducing nutrients. - NPO diet ? Accu checks q6h Consults: - GI consulted, appreciate recs - Dietitian consulted, appreciate recs - Speech therapy consulted, appreciate recs - PT/OT consulted #Anorexia BMI 13.3. Patient reports he lost about 35-40 lbs in the last 3-4 months. Will need to monitor for refeeding syndrome when re-introducing nutrients. Plan: ? RD consulted, appreciate recs ? Consider PEG tube after biopsy, per GI recs. Will need to monitor for refeeding syndrome when re-introducing nutrients. ? Trend magnesium and phosphorus ? Start MVI 10 ml IV infusion QD ? Folate 1 mg IV daily ? Thiamine 250 mg IV x 1, followed by 100 mg IV every day ? D5 half NS 75 cc/hour ? Accu-Cheks every 6 hours #RUE pain and weakness, likely 2/2 Pancoast tumor Onset 07/2024 with radiating pains down RUE and weakness of right hand. Progressively worsening since. Likely 2/2 compression of nerves by pancoast tumor. Plan: - Pain management as needed: - Morphine 1 mg IV every 4 hours PRN for moderate pain - Dilaudid IV for severe or breakthrough pain - Referral for PT/OT ordered - Continue with management and workup of pancoast tumor #Subclinical Hypothyroidism TSH elevated at 5.21 but free T4 1.08 Plan: - Continue to monitor thryoid levels outpatient. #Hypercalcemia Suspect 2/2 malignancy vs dehydration. Corrected Ca slightly elevated at 10.3 on 06/21, improved to 9.5 on 06/22. PTH wnl 21.4. Plan: - Trend calcium levels with CMP #Thrombophilia Could be 2/2 malignancy vs dehydration. Coag panel in ED and on repeat were within normal limits. 513 on 06/21, 357 on 06/22. Plan: - Trend CBC #Hypertension SBP up to 190s. On amlodipine 5 mg po QD at home. Plan: - Hold home amlodipine for now, as patient is NPO - labetalol 5 mg IV q2h PRN if SBP>175. Hold if HR<65. #Tobacco use disorder #Nicotine dependence Discussed smoking cessation with patient. Currently smoking about 1 pack per 3 days. Patient expressed willingness to try nicotine patch. - Nicotine patch 21 mg patch QD as needed #Leukocytosis Could be in setting of malignancy or reactive process Plan: ? Trend CBC Health maintenance Disposition: Med Surg GI Prophylaxis: Diet: NPO DVT prophylaxis: Lovenox CODE STATUS: DNI Case discussed with my attending Dr. Angela, and my senior resident, Dr. Melvi King, OMS4 Attending Provider Attestation/Addendum I have discussed and was present for the essential components of the history, physical examination, diagnosis, and treatment plan with the resident. I agree with the patient's care as documented by the resident and amended herein by me. Christian Angela DO. Although this document has been carefully reviewed, there may still be some phonetic and other typographical errors. These errors are purely grammatical due to imperfections in the software program and should not be construed in any way to compromise the substance of the patient's medical care during this visit.
[2025-06-22] MEDS: THIAMINE INJ 100 MG/ML VIAL 2 ML IV (08:14)
[2025-06-22] MEDS: FOLIC ACID INJ 1 MG/0.2 ML IVP (08:15)
[2025-06-22] MEDS: LABETALOL INJ 5 MG/ML VIAL 20 ML IVP ×2 (08:46→16:55)
--- NOTE | 2025-06-22 08:46 | PCS.ST ---
Hold swallow evaluation as pt is NPO for procedures today. Discussed swallowing difficulties with patient and all possible options for nutritional support. PO recommendations pending bedside swallowing evaluation in AM.
--- NOTE | 2025-06-22 08:49 | PC.NURSE ---
Sana RN, ACLS at bedside to administer Order Trandate IV 5mg PRN SBP>175
--- NOTE | 2025-06-22 08:50 | PC.NURSE ---
COORDINATED ADMINISTRATION OF IV LABETALOL WITH PLASTIC SURGERY ASSISTANTDARON HICKS PT ALERT AND ORIENTED X3 AFTER ADMINISTRATION LABETALOL IV DENIES SOB, CHEST PAIN, OR DIZZINESS.
[2025-06-22] MEDS: MORPHINE SULF INJ 10 MG/ML VIAL IVP ×3 (08:52→21:50)
--- NOTE | 2025-06-22 09:08 | XR_ITS ---
Examination: CT-guided percutaneous biopsy pulmonary mass right upper lobe CT chest without intravenous contrast Date and time of procedure: July 02, 2025 1012 hours INDICATIONS: Pulmonary mass right upper lobe on CT chest June 21, 2025 Informed consent provided. A timeout was completed verifying correct patient, procedure, site and positioning. Technique: Axial 3 mm sections were obtained for localization of the lung abnormality. Appropriate area is marked. The patient's site was prepped and draped in sterile fashion Maximal sterile barrier technique utilized, including hand hygiene Local anesthesia was obtained with 1% lidocaine. Low dose protocols were performed. One or more of the following dose reduction techniques were used; automated exposure control, adjustment of the mA and/or KV according to patient size, use of iterative reconstruction technique. Utilizing CT fluoroscopic guidance for core biopsies obtained of the pulmonary mass in the right upper lobe Patient appears in stable condition during this procedure. At completion of the procedure, the patient is in satisfactory condition. Estimated blood loss 2 cc Complete pathology report to follow. Impression: Successful CT-guided percutaneous biopsy pulmonary mass right upper lobe Preliminary report indicates malignant cells
[2025-06-22] MEDS: fentaNYL CIT INJ 50 mCg/ML AMP 2ML 100 MCG IVP (10:16)
--- NOTE | 2025-06-22 10:36 | XR_ITS ---
Examination: AP chest single view Technique one AP portable semiupright chest single view Date and time: June 22, 2025 1050 hours INDICATIONS: Post biopsy pulmonary mass right apex today FINDINGS: No pneumothorax post biopsy of pulmonary mass right upper lobe The mass is again depicted impinging upon the trachea Normal heart size IMPRESSION: No pneumothorax post biopsy pulmonary mass right upper lobe
--- NOTE | 2025-06-22 11:08 | PC.NURSE ---
1036 patient is awake, alert, breathing unlabored, s/p lung biopsy, dressing dry with no bleeding, patient transferred to slabbing machine operator bay 3 for recovery. chest xray order for now, second xray in 1 hr 1102 chest xray completed and read by Dr. Will, no pneumothorax seen, ok to transfer patient back to room 365, second xray due in 1hr, ok to do xray in [facility] room. 1110 patient is awake, alert, breathing unlabored, dressing dry with no bleeding, report given to Carol GUSTAFSON, patient will be transferred back to room 365
--- NOTE | 2025-06-22 12:00 | XR_ITS ---
Examination: AP chest single view TECHNIQUE: AP portable upright chest single view Date and time: June 22, 2025 1212 hours INDICATIONS: Post right lung biopsy today. FINDINGS: No pneumothorax post lung biopsy Pulmonary mass right upper lobe again noted Normal heart size IMPRESSION: No pneumothorax post lung biopsy
--- NOTE | 2025-06-22 12:27 | PC.SS ---
Addendum entered by Michelle Luis 06/22/25 15:52: SS spoke to PT who recommended o/p PT for patient. SS explained patient will need to follow up with p.c.p. for authorization prior to referral. Original Note: Patient is alert/oriented. Patient was admitted for dysphagia.. Patient was down in a procedure when SS entered room to speak with family. Patient's dinkey engine firer/fireman, Adrianna, was present and states patient resides with her and is independent with ADL's. Patient does not possess any DME at home. Patient has been lethargic and cannot ambulate for very long. Patient was pending a CT biopsy this morning. Patient has a speech consult. Order Tracer states patient follows with a pain management clinic and PCP: Dr Alex at [facility]. Last appt. was last month. Alt medical decision maker is his dinkey engine firer/fireman, Adrianna at [phone] D/c plan: home with transportation: family
[2025-06-22] MEDS: DEXTROSE 5%-NS 1,000 ML 75 ML IV (14:09)
--- NOTE | 2025-06-22 16:35 | PC.DIETICIAN ---
Nutrition recommendations: If oral intake is feasible: 1. Cardiac diet (adjust food/liquids consistency as needed). 2. Ensure Plus 240ml BID with lunch and dinner (chocolate). If EN is required, consider: Jevity 1.2 at 20 ml/hr via OG/NG/PEG tube by pump. Advance 10 ml every 12 hrs to goal rate of 65 ml/hr x 24 hrs. If no IV fluids, water flushes of 30 ml/hr (or per MD). The patient is also at significant risk for refeeding syndrome, consider: 1. Continue with Thiamine 100mg/day. 2. Multivitamins/Minerals. 3. Daily labs for P, K, and Mg; replace as needed.
--- NOTE | 2025-06-22 17:52 | PC.PT ---
PT eval only. Patient was xI with bed mobility, transfers, and ambulation. Patient is safe to ambulate to the bathroom and in the halls with no staff and no AD. RN made aware.
[2025-06-22] MEDS: RINGERS LACTATED 1000 ML 1,000 ML 125 ML IV (18:39)
--- NOTE | 2025-06-22 19:02 | SUR.PHASEI ---
Pt. arrived to recovery via gurney, eyes open, AAOx3, VSS, no c/o pain or nausea at this time, pt. is coughing up phlem, tripoding noted with coughing episodes, lung sounds diminished, mass noted to right side of neck, present pre-op, report received from Dr. Purvis and Shaji GUSTAFSON.
--- NOTE | 2025-06-22 19:50 | SUR.PHASEI ---
Pt. transferred to room 365 via VADIM perez, no c/o pain or nausea, pt. is tolerating ice chips, Michelle GUSTAFSON assumed care of pt.
--- NOTE | 2025-06-22 20:04 | EKG_ITS ---
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
[2025-06-22] MEDS: DEXTROSE 5%-NS 1,000 ML 60 ML IV (21:59)
[2025-06-23] VITALS: BP 150/99; PULSE 81; PULSE 84; RESP 16; TEMP 36.6; O2SAT 94
[2025-06-23] MEDS: HYDROmorphone INJ 2 MG/ML VIAL 0.5 MG IVP ×3 (02:10→12:37)
[2025-06-23 04:00] VITALS: BP 144/80; PULSE 75; PULSE 76; RESP 19; TEMP 36.6; O2SAT 94
[2025-06-23 06:00] VITALS: BMI 13.3
[2025-06-23 06:06] LABS: Basophils # (Auto) 0.1 Thou/mm3 (0.0-0.2); Basophils % (Auto) 1 % (0-2.5); Eosinophils # (Auto) 0.1 Thou/mm3 (0.0-0.5); Eosinophils % (Auto) 1 % (0-10); Hematocrit 34.0 % (41.0-53.0); Hemoglobin 11.7 g/dL (13.5-16.0); Immature Granulocytes Auto 0.05 Thou/mm3 (0.00-0.00); Lymphocytes # (Auto) 1.6 Thou/mm3 (1.0-4.8); Lymphocytes % (Auto) 15 % (10-50); Mean Corpuscular HGB Conc 34.4 g/dl (31.0-37.0); Mean Corpuscular Hemoglobin 33.2 pg (25.0-35.0); Mean Corpuscular Volume 97 fL (80-100); Monocytes # (Auto) 1.1 Thou/mm3 (0.0-0.8); Monocytes % (Auto) 10 % (0-12); Neutrophils # (Auto) 8.2 Thou/mm3 (1.8-7.7); Neutrophils % (Auto) 74 % (37-80); Nucleated Red Blood Cell # 0.00 Thou/mm3 (0.00-0.00); Nucleated Red Blood Cell % 0 /100 WBC (0); Platelet Count 292 Thou/mm3 (140-440); RDW Standard Deviation 43.1 fL (35.1-43.9); Red Blood Count 3.52 Miln/mm3 (4.50-5.90); White Blood Count 11.1 Thou/mm3 (3.8-10.6)
[2025-06-23] MEDS: ALBUTEROL/IPRATROPIUM (Duoneb) RT SOL 3 ML NEBU INH (06:31)
[2025-06-23 06:32] VITALS: PULSE 73; RESP 20; O2SAT 99
[2025-06-23 06:39] LABS: Alanine Aminotransferase 7 U/L (10-49); Albumin, Serum 3.5 gm/dL (3.4-4.8); Albumin/Globulin Ratio 1.6 (1.2-2.2); Alkaline Phosphatase 71 U/L (46-116); Anion Gap 10 (7-16); Aspartate Amino Transferase 12 U/L (0-34); BUN/Creatinine Ratio 10 Ratio (12-20); Bilirubin,Total 0.7 mg/dL (0.3-1.2); Blood Urea Nitrogen 5 mg/dL (9-23); Calcium 8.7 mg/dL (8.3-10.6); Calcium (Corrected) 9.1 mg/dL (8.5-10.1); Carbon Dioxide 29.4 mMol/L (20.0-31.0); Chloride 99 mMol/L (98-107); Creatinine (Component) 0.5 mg/dL (0.6-1.3); Estimated Creatinine Clearance 86.2 mL/min (>60); Globulin 2.2 gm/dL (2.3-3.5); Glucose 103 mg/dL (74-106); Magnesium 1.7 mg/dL (1.6-2.6); Osmolality,Calculated 272 (275-295); Phosphorous 2.8 mg/dL (2.4-5.1); Potassium 3.1 mMol/L (3.4-5.1); Sodium 138 mMol/L (136-145); Total Protein 5.7 gm/dL (5.7-8.2); eGFR > 60 See Note
[2025-06-23 07:52] VITALS: BP 149/93; PULSE 80; RESP 18; TEMP 36.4; O2SAT 95
[2025-06-23] MEDS: ENOXAPARIN SOD INJ 40 MG/0.4 ML SYRINGE SC (08:30)
[2025-06-23 08:32] VITALS: BP 149/93; PULSE 80
[2025-06-23] MEDS: THIAMINE INJ 100 MG/ML VIAL 2 ML IV (08:32)
[2025-06-23] MEDS: MULTIVITAMINS TABLET 1 TAB PO (08:33)
[2025-06-23] MEDS: POTASSIUM CHLORIDE 10% 20 MEQ/15 ML UDC 40 MEQ PO (08:56)
--- NOTE | 2025-06-23 10:38 | PD.RESDS ---
Planned Discharge Date 06/23/25 DS: Providers Provider Date of admission: 06/21/25 14:50 Primary care physician: NEGRA Yousif Admitting Provider: Jesús Angela DO Attending Provider on Admission: Jesús Angela DO Consults: 06/21/25 13:42 Consult to Gastroenterology Stat Comment: Consulting Provider: Merritt Kennedy 06/21/25 15:00 Referral Registered Dietitian Routine Comment: Referral Speech Therapy Routine Comment: 06/21/25 18:26 Referral Physical Therapy Routine Comment: Physician Instructions: Attending Provider on DC: Jesús Angela DO Discharging Provider: Jesús Angela DO DS: Diagnosis Problem List Completed Was Problem List Reviewed/Reconciled?: Yes Hospital Course Hospital Course Hospital course: Mr. Alexandre is a 65-year-old male with past medical history of hypertension, COPD (not on O2 at home), and current smoker who was admitted to [facility] on 06/21/2025 for an evaluation of of dysphagia and possible Pancoast tumor. Patient arrived to the ED with a temperature of 98.3, heart rate of 113, blood pressure 156/11, respiratory rate 20, saturating well on room air. Patient was worked up was found to have a white blood cell count of 13.7, platelets 513, INR 1.1, corrected calcium 10.3. Patient was worked up with imaging which showed unremarkable right shoulder x-ray. Soft tissue neck CT was done which showed a 5 x 2 x 6.3 tumor mass in the right lung apex that could represent a Pancoast type tumor extending into the lower neck destroying portions of the C1, T1, T2 vertebral bodies in addition to the mass displacing the esophagus to the left and displacing the trachea to the left. Gastroenterology was consulted for further workup dysphagia. Medicine was consulted patient admitted to the floors. While in the floors, patient had CT-guided biopsy of the lung tumor by interventional radiology, preliminary read on pathology showed malignant pattern. Patient had endoscopy by Dr. Kennedy GI, who had revealed esophageal stenosis which was dilated. There were discussions about patient possibly needing a PEG tube, however patient was seen by speech therapy who recommended dysphagia 2 at this time. Patient said he may consider getting a PEG tube if his dysphagia worsens, however at this time he wants to continue with his current diet. Patient was then discharged with recommendations to follow-up outpatient with his PCP for the lung biopsy results, to follow-up with an oncologist within 22 weeks and to follow-up with this collar feller, Dr. Kennedy. Patient did have hypercalcemia while inpatient, however resolved with fluids and it was a PTH independent process as PTH was low normal. Patient was also instructed for smoking cessation while inpatient as well. Patient was then discharged with the following structures listed below. Discharge instructions Follow-up with your PCP within 1 week Take your medicines as prescribed I am prescribing you Gabapentin for neuropathic pain, use as prescribed See your collar feller, Dr. Kennedy, to follow up from the hospital within 1-2 weeks. Address: [facility] [place] [address]. . Call to make an appointment Follow up with your oncologist within one to two weeks Follow up with your PCP in regards to your Lung biopsy You can follow up with us at the [facility], I have given you a card I am prescribing you a multivitamin, take as prescribed Return to ED if your symptoms worsen or return Problem List: #Dysphagia secondary to #? Pancoast tumor, R side #Cervical Radiculopathy #Shoulder pain #Hypercalcemia, resolved #Leukocytosis #Anorexia #Tobacco use #Nicotine Dependence Discharge summary was reviewed with my attending Dr. Coreen Ogden, PGY-2 Time Spent with Patient Time attestation: Total time spent providing and/or coordinating discharge services: Time spent: Greater than 30 minutes Home Health Home Health Referral Orders: 06/23/25 10:28 Home Health Referral Routine Reason For Exam: debility Home-Bound The patient must either because of illness or injury, need the aid of supportive devices such as crutches, canes, wheelchairs, and walkers; the use of special transportation; or the assistance of another person in order to leave their place of residence; OR have a condition such that leaving his or her home is medically contraindicated. In addition, the patient also meets the following criteria: patient is normally unable to leave the home and leaving home requires considerable taxing effort. Addendum to Home Health Certification Practitioner's Certification: I certify that the patient has been under my care in the hospital and the care of attending physician (see below). We had a vvbm-vo-jvsk encounter on (see date below). My clinical findings indicate that the patient is home bound per the above criteria and the Home Health Services noted in these orders are medically necessary. The primary reason for the pnoc-rw-vyyp encounter is related to the fact that the patient requires home health services. Date Certifying Mvkg-rj-Qdet Physician Encounter: 06/21/25 Physician's Name who will Assume Oversight for Services: Mikael Alex Physician's Phone No.who will Assume Oversight for Service: DIRECTOR DIGITAL ANALYTICS - Community Resources: No PT to Evaluate: Yes PT to evaluate and provide a treatmnet plan to increase patient's mobility and strength. Wound Care: No IV Therapy: No Discontinue PICC Line Once Treatment Complete: No RN Safety Evaluation: Yes RN to evaluate and create a plan of care that will produce positive outcomes. Palliative Treatment: No Palliative treatment and evaluate the need for hospice. Home Health Aide - Personal Care: No Home Health Aide to assist with any ADL's. Exam Vital Signs Temp Pulse Resp BP Pulse Ox O2 Del Method O2 Flow Rate 97.6 F 80 18 149/93 H 95 Room Air 6 06/23/25 07:52 06/23/25 08:32 06/23/25 07:52 06/23/25 08:32 06/23/25 07:52 06/23/25 07:52 06/22/25 18:40 Narrative Exam GENERAL: A&OX3. Thin male. No acute distress. Not diaphoretic. HEENT: Normocephalic. No scleral icterus. EOMI CV: Regular rate and rhythm. S1 and S2 heard. No murmurs. PULM: No accessory muscle use. CTAB, but quiet breath sounds. No wheezing or crackles. ABDOMEN: Soft and non-distended. No tenderness to palpation of all quadrants. No rebound or guarding. EXTREMITIES: Pain with palpation of right shoulder. No lower extremity edema. SKIN: Warm and dry. NEURO: No aphasia. Mild ptosis of right eye. No asymmetry of smile. PSYCH: Cooperative with exam. Discharge Plan Plan Patient Disposition: Home w/HOME HEALTH Patient condition on transfer: Stable Care Plan Goals: Discharge instructions Follow-up with your PCP within 1 week Take your medicines as prescribed I am prescribing you Gabapentin for neuropathic pain, use as prescribed See your collar feller, Dr. Kennedy, to follow up from the hospital within 1-2 weeks. Address: [address] [place] [address]. . Call to make an appointment Follow up with your oncologist within one to two weeks Follow up with your PCP in regards to your Lung biopsy You can follow up with us at the [facility], I have given you a card I am prescribing you a multivitamin, take as prescribed Return to ED if your symptoms worsen or return Prescriptions/Referrals Prescriptions/Med Rec: New multivitamin Tablet 1 tab PO QDAY 30 Days Qty: 30 0RF Rx Instructions: Take one tablet by mouth every day amlodipine 5 mg tablet 5 mg PO QDAY Qty: 14 0RF gabapentin 100 mg capsule 100 mg PO TID PRN (Reason: pain) 7 Days Qty: 21 0RF Rx Instructions: Take one tablet by mouth up to three times a day Discontinued hydrocodone-acetaminophen 5-325 mg tablet 1 tab PO Q6H PRN (Reason: pain) Patient Comments: TAKE 1 TABLET BY MOUTH EVERY 6 HOURS NEEDED amlodipine 5 mg tablet 5 mg PO QDAY Referrals: [facility] [Outside] Mikael Alex FNP-C [Primary Care Provider] - Patient/Caregiver Discharge Instructions Discharge Activity: activity as tolerated Education Materials: Upper GI Endoscopy, Treating Dysphagia, What Is Lung Cancer?, Dysphagia Aspiration, Dysphagia Diet- Managing Foods Print Language: Indonesian Stand Alone Forms: Lisa Award Info., Patient Portal Info Letter Discharge Order Discharge Orders: Discharge (Routine); Ordered 06/23/25 Ordered By: Antonette Ogden Quality Discharge Quality Measures VTE prophylaxis Attestestation Attestation I have discussed and was present for the essential components of the discharge history, physical examination, diagnosis, and discharge treatment plan with the resident. I agree with the patient's discharge care as documented by the resident and amended herein by me. Christian Angela, . The patient understood all discharge instructions, all questions were answered satisfactorily. Patient will need to follow-up with his primary care physician within 5 to 10 days of discharge, biopsy results from his Pancoast tumor should have resulted by then. Patient expressed interest in following up with our [facility], and will need to follow-up with gastroenterology, the patient may need a PEG tube if indeed his dysphagia worsens from most likely increased mass effect from the Pancoast tumor. Patient also has right upper extremity pain and paresthesia, likely secondary to tumor invasion in the cervical and thoracic spine. Patient will likely need referral to oncology from the primary care physician and possibly will need to see ENT and neurosurgery. Patient does follow with pain management and stated he does have pain medications prescribed until mid next week hence we will not be sending him with any opioids at this time. I did check cures and he was prescribed [place] 5/325 on 06/13 and had a 14-day supply. Further, we strenuously counseled the patient on smoking cessation and he understood. Patient was stable, afebrile, tolerating p.o. intake and ambulatory at time of discharge home. Although this document has been carefully reviewed, there may still be some phonetic and other typographical errors. These errors are purely grammatical due to imperfections in the software program and should not be construed in any way to compromise the substance of the patient's medical care during this visit.
[2025-06-23] MEDS: DEXTROSE 5%-NS 1,000 ML 60 ML IV (10:43)
[2025-06-23] MEDS: MORPHINE SULF INJ 10 MG/ML VIAL IVP (10:44)
[2025-06-23 12:00] VITALS: BP 147/89; PULSE 77; PULSE 80; RESP 16; TEMP 36.9; O2SAT 99
--- NOTE | 2025-06-23 18:37 | ESPR_ITS ---
Documentation for date of: 06/23/25 Subjective Subjective Interval history: Late entry for the note dysphagia improved after endoscopic dilatation okay to discharge patient to be followed by the oncology Exam Vital Signs Temp Pulse Resp BP Pulse Ox O2 Del Method O2 Flow Rate 98.4 F 77 16 147/89 H 99 Room Air 6 06/23/25 12:00 06/23/25 12:00 06/23/25 12:00 06/23/25 12:00 06/23/25 12:00 06/23/25 12:00 06/22/25 18:40 Objective Labs 06/23/25 05:10 06/23/25 05:10 Labs: Laboratory Results - last 24 hr 06/23/25 05:10 WBC 11.1 H RBC 3.52 L Hgb 11.7 L Hct 34.0 L MCV 97 MCH 33.2 MCHC 34.4 RDW Std Deviation 43.1 Plt Count 292 D Neut % (Auto) 74 Lymph % (Auto) 15 [place] % (Auto) 10 Eos % (Auto) 1 Baso % (Auto) 1 Neut # (Auto) 8.2 H Lymph # (Auto) 1.6 [place] # (Auto) 1.1 H Eos # (Auto) 0.1 Baso # (Auto) 0.1 Immature Gran # (Auto) 0.05 H Absolute Nucleated RBC 0.00 Immature Gran % 1 H Nucleated RBC % 0 Sodium 138 Potassium 3.1 L Chloride 99 Carbon Dioxide 29.4 Anion Gap 10 BUN 5 L Creatinine 0.5 L Estim Creat Clear Calc 86.2 eGFR > 60 BUN/Creatinine Ratio 10 L Glucose 103 Calculated Osmolality 272 L Calcium 8.7 Corrected Calcium 9.1 Phosphorus 2.8 Magnesium 1.7 Total Bilirubin 0.7 AST 12 ALT 7 L Alkaline Phosphatase 71 Total Protein 5.7 Albumin 3.5 Globulin 2.2 L Albumin/Globulin Ratio 1.6 Impressions Impression: Dysphagia improved after endoscopic dilatation Pancoast tumor Followed by oncology I do feel patient may still need placement of a gastrostomy tube later on Assessment & Plan A&P Narrative # Right lung apex mass because of dysphagia by pushing the trachea to the left However patient also has a history of thyroidectomy might have scar tissue causing stricture of the esophagus in addition to the above findings Suggestions CT-guided biopsy of the right apex mass of the right lung N.p.o. midnight tonight Fiberoptic esophagogastroduodenoscopy with possible biopsy possible esophageal dilatation scheduled for tomorrow After endoscopy for nutritional support patient may need a PEG tube as the trachea is pushed to the left side Other medical problems include Mass right lung in the apex CT-guided biopsy by IR Essential hypertension COPD Status post thyroidectomy Thank you very much for the opportunity to participate in care of this patient Time Spent With Patient Time: Total time spent is greater than 50% in coordination of care (as documented) at patient's floor/unit and/or counseling patient:
--- NOTE | 2025-06-24 15:43 | PC.CC ---
Addendum entered by Sandi Ann RN 06/24/25 15:45: [facility] accepted the pt. Booked [facility]. Pending start of care date. Original Note: Home health referral was sent by transfer nurse yesterday.
--- NOTE | 2025-06-25 17:11 | PC.CM ---
[facility] accepted patient and start of care set for 06/27.
--- NOTE | 2025-06-27 08:26 | PC.CC ---
received message from [facility] SOC was 06/25/25.
== END 2025-06-23 13:22 | disposition home health service (06) | DRG 136 ==
LOC: SERX 13:38 → SERHOLD 15:43 → S3SX 16:58 → S3NX 18:08
PROVIDERS: Registered Nurse General Practice; Specialist; Student in an Organized Health Care Education/Training Program; Admitting Provider Student in an Organized Health Care Education/Training Program; Emergency Provider Emergency Medicine; PCP Registered Nurse; Visit Provider Student in an Organized Health Care Education/Training Program
PROC: 0D758ZZ Dilation of Esophagus, Via Natural or Artificial Opening Endoscopic (ICD-10-PCS; CPT 43239; principal; 2025-06-22 17:00)
DX: C34.11 Malignant neoplasm of upper lobe, right bronchus or lung (principal); E83.52 Hypercalcemia; R63.0 Anorexia; Z68.1 Body mass index [BMI] 19.9 or less, adult; F17.210 Nicotine dependence, cigarettes, uncomplicated; I10 Essential (primary) hypertension; J44.9 Chronic obstructive pulmonary disease, unspecified; D72.829 Elevated white blood cell count, unspecified; D68.59 Other primary thrombophilia; E89.0 Postprocedural hypothyroidism; K22.2 Esophageal obstruction; M54.12 Radiculopathy, cervical region; Z71.6 Tobacco abuse counseling; M25.519 Pain in unspecified shoulder
CPT/HCPCS: 36415; 70491; 71260; 77012; 80053; 80061; 83036; 83735; 83970; 84100; 84439; 84443; 85025; 85610; 85730; 87077; 87186; 87205; 92610; 93005; 93225; 94640; 96361; 96374; 96375; 96376; 97162; 99284; A4649; A9270; C1726; J1171; J1200; J1650; J2250; J2270; J2405; J2470; J3010; J3411; J3490; J7030; J7042; J7050; J7120; Q9967; J1920

== ENCOUNTER 2025-07-02 12:55 | Outpatient (AMB) | payer MEDICAID, SELFPAY ==
[2025-07-02 13:11] VITALS: BP 148/92; PULSE 103; RESP 20; TEMP 36.7; O2SAT 92; BMI 15.6
--- NOTE | 2025-07-02 13:11 | ACNOTE_ITS ---
Vital Signs 07/02/25 13:11 Height 1.6 m Height Method Stated Weight 40.143 kg Weight Measurement Method Standing Scale BMI 15.6 BP 148/92 H Blood Pressure Source Automatic Cuff Blood Pressure Location Right Upper Arm Position Sitting Respiration 20 Pulse 103 H Pulse Source Monitor Temp 98.0 F Temp Source Temporal Artery Scan Pulse Oximetry (%) 92 L Oxygen Delivery Method Room Air Allergies/Meds Allergies & Medications Allergies No Known Allergies Allergy (Verified 06/21/25 08:10) MA Intake Visit Data Collection New Patient or Established: Established Patient (seen at [facility] within 3 years) Seen by Clinical Staff ONLY (RN/MA): No Reason for Visit:: HOSPITAL FOLLOW UP Pain Present Currently: Yes Pain scale:: 9 Electrical Logger Required: No PCP or OBGYN visit in last 3 months: No Do You Feel Safe at Home: Yes Authorities Contacted: N/A Smoking Status Smoking Status: Never smoker Immunization / Flu Flu Vaccine in the Last 12 Months: Yes Flu Vaccine Exclusion Criteria: Already Received Past Medical History Past Medical History NEUROLOGIC: Negative Seizures CARDIAC: Positive Hypertension; Negative Cardiac Disorders or Congestive Heart Failure RESPIRATORY: Positive Chronic Obstructive Pulmonary Disease (COPD); Negative Asthma GENITOURINARY: Negative Renal Disease ENDOCRINE: Negative Diabetes Mellitus Type 1 or Diabetes Mellitus Type 2 HEMATOLOGIC: Negative Sickle Cell Disease OTHER HISTORY: Negative Blood Transfusions, Blood Transfusion Reaction or Anesthesia Reactions Surgical History SURGICAL: Positive Thyroidectomy Social History SMOKING STATUS: Smoking status: Never smoker ALCOHOL: Alcohol Intake: Never HOUSING: Housing: House Patient Portal Questionaires Social History Living Situation History Housing: House Tobacco History Smoking Status: Never smoker Alcohol History Alcohol Intake: Never Domestic Abuse History Do You Feel Safe at Home: Yes Review of Systems Report any current symptoms Only answer those that you have currently: Past Medical History Past Medical History Have you ever been diagnosed with any of the following: Neurological Problems Seizures: No Cardiology Problems Congestive Heart Failure: No Hypertension: Yes Respiratory Problems Chronic Obstructive Pulmonary Disease (COPD): Yes Asthma: No Genital/Urinary Problems Renal Disease: No Endocrine Problems Diabetes Mellitus Type 1: No Diabetes Mellitus Type 2: No Blood Problems Sickle Cell Disease: No Other Problems Blood Transfusions: No Blood Transfusion Reaction: No Anesthesia Reactions: No Surgical History Thyroidectomy: Yes History of Present Illness HPI Narrative Patient is a 65 year old patient with past medical history of hypertension, COPD (not on O2 at home), and current smoker who presents today for hospital follow up. He was admitted from 06/24/25 for evaluation of dysphagia, with concern for Pancoast tumor on CT neck. Came today to follow up pathology report, which shows he has primary lung adenocarcinoma. Has upcoming PET scan appointment on 07/17/25. Pending appointment with oncologist Dr. Anaya at [facility] cancer center, instructed patient to call tomorrow. Was accompanied by who reports patient's appetite is good, increased intake but unable to gain weight. Per records, he has been able to maintain similar weight since discharge. Continues to endorse right arm pain, able to raise arm above head without issues. Has upcoming appointment with pain specialist clinic in [facility] Lindy [employer]NAGER with [facility], on 07/08 however has run out of pain medications. He reports that he quit smoking 6 days ago, eats hard candy to control cravings, refuses nicotine patch at this time. BP and heart rate elevated in office today. Review of Systems Review of Systems Narrative Review of Systems: Review of Systems General: Denies fevers or chills HEENT: Denies congestion or sore throat Heart: Denies chest pain or palpitations Lungs: Denies shortness of breath or cough Abdomen: Denies diarrhea, nausea, vomiting, constipation, bright red blood per rectum or melena Genitourinary: Denies frequency, urgency, dysuria, or hematuria Musculoskeletal: Right arm pain, denies joint pain or myalgias Neurology: Denies any changes in vision, weakness or difficulty speaking Review of systems otherwise negative except what is mentioned above. Objective/Exam Narrative Physical exam: Physical Exam General: Cachetic, pleasant elderly male. Awake and in no acute distress. Conversational and non-toxic appearing. HEENT: Normocephalic, atraumatic, mucous membranes moist. Heart: Tachycardic. Regular rate and rhythm, normal S1 and S2, no murmurs. Lungs: Clear to auscultation with no wheezing or crackles. Abdomen: Soft, nondistended, nontender, positive bowel sounds. No guarding or rebound tenderness. Neurologic: Alert and oriented x3, no gross neurological deficit, and patient able to move all 4 extremities. No decreased strength or sensation in upper extremities bilaterally. Extremities: No edema. Skin: No rash or ecchymoses. Assessment & Plan Diagnosis / Problem List (1) Primary lung adenocarcinoma: Status: Acute Qualifiers: Laterality: right Qualified Code(s): C34.91 - Malignant neoplasm of unspecified part of right bronchus or lung Assessment & Plan: Admitted 06/21-06/24/25 for dysphagia secondary to Pancoast tumor. Pathology report from lung biopsy on 06/22/25 reveals primary lung adenocarcinoma. Although more commonly observed in non smoking females, patient has extensive smoking history that still puts him at increased risk. As above, patient has recently ceased smoking cigarettes. Plan: - Referred to oncologist Dr. Anaya at [facility], patient will call to make appointment - Scheduled PET scan for 07/17 - Educated on tobacco cessation - Offered nicotine patch, refused but will follow (2) Cervical radiculopathy: Status: Acute Assessment & Plan: Reported progressively worsening right upper extremity pain since 07/2024. Likely secondary to Pancoast tumor extending into the lower neck, destroying portions o f the C7, T1, T2 vertebral bodies. Able to lift arm against gravity without pain, strength intact. Plan: - Continue Secretary 5 - Continue gabapentin 300mg TID (3) Hypertension: Status: Acute Qualifiers: Hypertension type: primary hypertension Qualified Code(s): I10 - Essential (primary) hypertension Assessment & Plan: Longstanding history of hypertension. BP 148/92 at visit today, goal <120/80. Does not take blood pressure at home, possibly white coat syndrome effect versus secondary to pain versus agitation from recent cessation. No history of CKD. Plan: - Increase amlodipine 5 to 10mg daily - Monitor for lower extremity edema at next visit Office Procedures [facility] Level of Care Nursing/Assessment Patient Status: Established Patient Nursing Assessment/Reassessment: Medication Reconciliation, Update PMH in EMR and Vital Signs Coordination of Care: Complex Care and Chronic Disease 1-5, Consent,records obtained, informed consent, Lab and Imaging orders and Results/Orders obtained Established Patient Charge Established Patient Point Assignment: 80 Established Patient Point Charge: Level 3 (80-115)
== END 2025-07-02 14:06 | disposition home or self-care (01) ==
LOC: HODAHC 12:55
DX: C34.90 Malignant neoplasm of unspecified part of unspecified bronchus or lung (principal); F17.210 Nicotine dependence, cigarettes, uncomplicated; Z71.6 Tobacco abuse counseling; M54.12 Radiculopathy, cervical region; I10 Essential (primary) hypertension
CPT/HCPCS: 99213; G0463

== ENCOUNTER 2025-07-13 10:33 | Outpatient (RCR) | payer MEDICAID, SELFPAY ==
--- NOTE | 2025-07-05 10:46 | CTCCONSULT_ITS ---
[facility] [address] [place], [place] [address] Consultation Note Date: 07/05/2025 MR#: [id number] Name: MEENAKSHI ACUÑA : 1960 Dx: C34.11 Malignant neoplasm of upper lobe, right bronchus or lung Attending physician. Adolph Courtney MD Reason for consultation. Right apical Pancoast type lung CA referred for urgent evaluation at the cancer center. History of Present Illness: 65-year-old gentleman with history of heavy smoking and right shoulder pain with initial right shoulder x-ray 06/21/[address] of the neck chest 06/21/2025 revealed this 5.2 x 6.3 cm tumor right lung apex Pancoast type extending to lower neck destroying portions of C7 T1-T2 to vertebral bodies. The mass was displacing the esophagus to the left and displacing the trachea as well. CT-guided biopsy 06/22/2025 revealed adenocarcinoma consistent with lung primary. Referred for difficulty swallowing evaluated by Dr. Kennedy for dysphagia underwent endoscopy with dilatation 06/23/2025. . There was a benign appearing esophageal stenosis with extrinsic pressure from the Pancoast tumor. No specimen was collected. Urgent referral to cancer center requested. Was given gabapentin for neuropathic symptoms. Has had 30 pound weight loss in the past 6 months. Past Medical History: COPD hypertension Meds. 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 Difficulty hearing ringing in the ears easy bruising muscle pain nocturia sleep trouble trouble swallowing significant weight loss Physical Exam: General: Thin gentleman in no acute distress HEENT: There is palpable right lower neck and supraclavicular adenopathy. CV: Chest good auscultation heart regular rate and rhythm ABD: Soft no organomegaly or tenderness EXT: No cyanosis clubbing or edema Assessment:#1 adeno CA of the lung apex with Pancoast symptoms with significant neuropathic pain and displacement of the esophagus and trachea to the left. #2. There is significant bony involvement with destruction and in my view there is mild spinal cord involvement at C7-T1 area. #3. Elected to start urgent radiation to the upper thoracic lower cervical region, minimum of 4000 cGy which should achieve palliation of both pain and reduce potential for spinal cord injury.. #5. With significant weight loss which may get worse over the next few weeks. is aggressively providing nutritional support.. Dr. Kennedy has suggested G- tube which patient declined but may need to be considered later on. #4. PET scan for staging of non-small cell lung #5. PD-L1 pending and foundation [address] Jc, medical oncologist, scheduled see patient soon regarding systemic therapy. #6. Thank you very much for allowing me to evaluate and manage this patient. Cc: Adolph Kennedy MD Electronically signed by: Carlos Manuel Anaya MD, DABR 07/05/2025 10:44 AM
--- NOTE | 2025-07-05 10:47 | CTCTXPLN_ITS ---
[facility] [address] [place], [place] [address] Physician Clinical Treatment Planning Note Date of Service: 07/05/2025 Name: MEENAKSHI ACUÑA : 1960 The patient has agreed to proceed with Radiation therapy. Tests and supporting medical records were interpreted to assist in defining the tumor location and extent of disease. Further imaging will be necessary to contour and delineate the volume to which the XRT will be provided. A. Treatment Intent: Palliative B. Modality: 6 MV C. Requested Technique: 3D D. Treatment Site: Neck chest E. Critical structures to be contoured on plan: F. In order to accomplish this plan, I am ordering/Prescribing the followin. Simulations (s) will be performed to accomplish a reproducible treatment position, to determine optimal treatment portals/beam arrangements, to design beam modifying devices and verify treatment portals on patient prior to the commencement of Radiation Therapy. Neck chest Vac-Rylan 2. Devices; for immobilization and beam shapin. CT Guidance for placement of XRT younger Scan area: 4. Portal images Frequency: 5. Invivo transit dose measurement once per week on all VMAT patients. 6. Special Physics Consult Requested for: 7. Other requests: Special procedures someone will get chemo and radiation G. Dose Objectives: Palliative. Recommended emergent authorization and treatment as patient is in danger of being paralyzed due to tumor involving the spinal cord. Electronically signed by: Carlos Manuel Anaya M.D. 07/05/2025 10:45 AM
--- NOTE | 2025-07-05 10:51 | CTCTXPLNST_ITS ---
Radiation Oncology Treatment Planning Sheet Name: MEENAKSHI ACUÑA MR#: [id number] : 1960 Dx: C34.11 Malignant neoplasm of upper lobe, right bronchus or lung Date of Service: 07/05/2025 Account #: ?? Pt Treatment Intent: curative palliative other: Stage: Procedure CPT # Ordered Spec. Procedure 56343 1 Thompson Complex (set-up) 40274 C3- T5 1 Thompson Simple 94354 1 IMRT Plan 44024 MLC Devices VMAT 80289 Thompson 3 D 74895 1 TRTMT dev Complex 33721 Vaklok/2F 3 TRTMT dev simple 01209 Basic Tyrel 67826 2 Special Dosimetry 37215 Spec Physics 90301 Port Films 95348 5 SRS Cranial/1FX 22562 SBR 5 FX or Less /ex: 5 = 5 fx 70935 IMRT Simple 45564 IMRT Complex 54847 IGRT 25808 Rad del [employer] 6-10 63307 [employer] del [employer] 11 32781 4400 22 Cont Med Physics 80602 4 Treatment Planning 16459 1 Weekly Evaluation 60176 5 Rad del [employer] 20 mev 47907 Special Port Plan 93053 TRTMT dev inter 70576 Isodose Complex 83344 Isodose simple 26156 Resp Motion Mgmt Simulation 80583 Placement of Fiducial Markers 37701 Electronically Signed By: Carlos Manuel Anaya MD, DABR 07/05/2025 10:48 AM
== END 2025-07-15 23:59 | disposition home or self-care (01) ==
LOC: SCTC 10:33
PROVIDERS: Referring Provider Family Medicine; Visit Provider Radiology Therapeutic Radiology
DX: Z51.0 Encounter for antineoplastic radiation therapy (principal); C34.11 Malignant neoplasm of upper lobe, right bronchus or lung; Z87.891 Personal history of nicotine dependence
CPT/HCPCS: 77014; 77280; 77290; 77295; 77300; 77334; 77412; 77470

== ENCOUNTER 2025-07-23 10:05 | Outpatient (AMB) | payer MEDICAID, SELFPAY ==
[2025-07-23 10:31] VITALS: BP 137/83; PULSE 89; RESP 17; TEMP 36.6; O2SAT 94
--- NOTE | 2025-07-23 10:31 | PD.RESCLINIC ---
Vital Signs 07/23/25 10:31 Weight Measurement Method Wheelchair BP 137/83 H Blood Pressure Source Automatic Cuff Blood Pressure Location Right Upper Arm Position Sitting Respiration 17 Pulse 89 Pulse Source Monitor Temp 97.9 F Temp Source Oral Pulse Oximetry (%) 94 L Oxygen Delivery Method Room Air Allergies/Meds Allergies & Medications Allergies No Known Allergies Allergy (Verified 07/23/25 10:31) Medication Reconciliation amlodipine 10 mg tablet 10 mg PO QDAY 1 month #30 tabs 07/02/25 [Rx Confirmed 07/23/25] gabapentin 300 mg capsule 300 mg PO TID PRN pain 1 month #60 caps 07/02/25 [Rx Confirmed 07/23/25] hydrocodone 5 mg-acetaminophen 325 mg tablet 1 tab PO Q6H PRN pain 1 month #60 tabs 07/02/25 [Rx Confirmed 07/23/25] MA Intake Visit Data Collection New Patient or Established: Established Patient (seen at [facility] within 3 years) Seen by Clinical Staff ONLY (RN/MA): No Pain Present Currently: Yes Pain Location: Generalized Pain scale:: 6 Pain Scale Used: Solitario-Murphy/Numerical PCP or OBGYN visit in last 3 months: No Do You Feel Safe at Home: Yes Authorities Contacted: N/A Smoking Status Smoking Status: Never smoker Immunization / Flu Flu Vaccine in the Last 12 Months: No Flu Vaccine Exclusion Criteria: No Exclusion Criteria Past Medical History Past Medical History NEUROLOGIC: Negative Seizures CARDIAC: Positive Hypertension; Negative Cardiac Disorders or Congestive Heart Failure RESPIRATORY: Positive Chronic Obstructive Pulmonary Disease (COPD); Negative Asthma GENITOURINARY: Negative Renal Disease ENDOCRINE: Negative Diabetes Mellitus Type 1 or Diabetes Mellitus Type 2 HEMATOLOGIC: Negative Sickle Cell Disease OTHER HISTORY: Negative Blood Transfusions, Blood Transfusion Reaction or Anesthesia Reactions Surgical History SURGICAL: Positive Thyroidectomy Social History SMOKING STATUS: Smoking status: Never smoker ALCOHOL: Alcohol Intake: Never HOUSING: Housing: House Patient Portal Questionaires Social History Living Situation History Housing: House Tobacco History Smoking Status: Never smoker Alcohol History Alcohol Intake: Never Domestic Abuse History Do You Feel Safe at Home: Yes Review of Systems Report any current symptoms Only answer those that you have currently: Past Medical History Past Medical History Have you ever been diagnosed with any of the following: Neurological Problems Seizures: No Cardiology Problems Congestive Heart Failure: No Hypertension: Yes Respiratory Problems Chronic Obstructive Pulmonary Disease (COPD): Yes Asthma: No Genital/Urinary Problems Renal Disease: No Endocrine Problems Diabetes Mellitus Type 1: No Diabetes Mellitus Type 2: No Blood Problems Sickle Cell Disease: No Other Problems Blood Transfusions: No Blood Transfusion Reaction: No Anesthesia Reactions: No Surgical History Thyroidectomy: Yes History of Present Illness HPI Narrative Patient is a 65 year old patient with past medical history of hypertension, COPD (not on O2 at home), and current smoker admitted to [facility] from 06/21-06/24/25 for evaluation of dysphagia, with concern for Pancoast tumor on CT neck. Biopsies were obtained which confirmed primary lung adenocarcinoma. 07/23- Pt is in office for follow up with few updates on his health. Pt saw Dr. Anaya since last appointment, and has been undergoing radiation daily for the last 1 week. Plan is to undergo 22 total sessions of the radiation and then transition to chemotherapy. Pt is currently on pain management by Dr. Anaya and states he is still in significant amount of pain and currently have tingling sensation on right upper extremity and developing in the right lower extremity. Pt states he has been needing wheelchair. Pt is scheduled for PET scan appointment on 07/24/25. Pt is being followed by oncologist Dr. Anaya and Dr. Jc at [facility] cancer center. Pt also has MRI of the brain pending. Appetite has significant improved however he feels like a pill is stuck in the throat. Pt has an appointment with Dr. Anaya today for another session of radiation. 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 Review of Systems Review of Systems Systems Reviewed: All systems reviewed, normal except as documented Objective/Exam Narrative Physical exam: GENERAL: A&Ox3 . catechetic appearing male, appears to be older than stated age. Awake, Not in acute distress NEURO: no focal neurological deficits HEENT: Atraumatic, Normocephalic. mucous membranes moist. Eyes open, symmetrical, & clear HEART: Normal Heart Sounds LUNGS: Clear to auscultation with no wheezing or crackles. ABDOMEN: soft, non-distended, non-tender, bowel sounds heard, no guarding or rebound tenderness SKIN: No Rash or ecchymoses EXTREMITIES: No edema, tenderness, able to move all 4 extremities, pedal pulses palpated Assessment & Plan Diagnosis / Problem List (1) Primary lung adenocarcinoma: Status: Acute Qualifiers: Laterality: right Qualified Code(s): C34.91 - Malignant neoplasm of unspecified part of right bronchus or lung Assessment & Plan: Pathology report from lung biopsy on 06/22/25 reveals primary lung adenocarcinoma. Pt is following Dr. Anaya at the [facility] cancer center, currently undergoing radiation therapy. Completed 6 of the total 22 radiation therapy Pt has significant weightloss and generalized muscle wasting Plan: - Continue to follow up with radiation oncologist Dr. Anaya - PET scan is scheduled for 07/24 - [facility] referral made for extra support and needs including wheelchair (2) Hypertension: Status: Acute Qualifiers: Hypertension type: primary hypertension Qualified Code(s): I10 - Essential (primary) hypertension Assessment & Plan: Longstanding history of hypertension. Plan: - Continue amlodipine 10mg daily - Monitor for lower extremity edema at next visit Orders: Referrals DME Services C34.91 - Malignant neoplasm of unspecified part of right bronchus or lung, M54.12 - Radiculopathy, cervical region, R91.8 - Other nonspecific abnormal finding of lung field Additional Assessment Attending note: I, Daniel Celeste MD, attest that I was physically present for the baker portions of the service and evaluated the patient with the resident and I reviewed and discussed the case with the resident and agree with the resident's findings and plans of care as documented above. Daniel Celeste MD Physician Billing Established Patient Established Patient: E/M Level 3-CPT 43396 Office Procedures [facility] Level of Care Nursing/Assessment Patient Status: Established Patient Nursing Assessment/Reassessment: Medication Reconciliation, Update PMH in EMR and Vital Signs Coordination of Care: Complex Care and Chronic Disease 1-5, Education Complex Pt/Fam and Staff clarify orders Established Patient Charge Established Patient Point Assignment: 85 Established Patient Point Charge: EP Level 3 (80-115)
== END 2025-07-23 11:13 | disposition home or self-care (01) ==
LOC: HODAHC 10:05
PROVIDERS: Supervising Provider Internal Medicine
DX: C34.91 Malignant neoplasm of unspecified part of right bronchus or lung (principal); I10 Essential (primary) hypertension; M62.50 Muscle wasting and atrophy, not elsewhere classified, unspecified site; R63.4 Abnormal weight loss; M54.12 Radiculopathy, cervical region
CPT/HCPCS: 99213; G0463

== ENCOUNTER → 2025-07-24 | Outpatient (CLI) | payer MEDICAID, SELFPAY ==
--- NOTE | 2025-07-24 10:15 | XR_ITS ---
EXAMINATION: PET/CT FUSION SKULL TO THIGH EXAM DATE AND TIME: July 24, 2025, 1141 hours, comparison CT soft tissue chest June 21, 2025 INDICATIONS: Diagnosis lung cancer, soft tissue tumor mass right lung apex lower right neck, 5.2 x 6.[address] chest the neck June 21, 2025, staging CTDI:vol (mGy) 1.87 DLP: (mGycm) 171.07 PROCEDURE: 14.3 mCi FDG was administered intravenously To allow for distribution and uptake of radiotracer, the patient was allowed to rest quietly in a shielded room. Imaging was performed on an integrated 16-slice PET/CT scanner, with scanning from the skull base to the mid thigh. Serum blood glucose at the time of the injection was measured 127 mg/dL. CT scanning was performed without oral or intravenous contrast material. FINDINGS: Head and Neck, chest The patient is angulated which distorts imaging in the neck Hypermetabolic mass 12 mm at the angle of the mandible on the left side which extends caudad 28 mm anterior to the upper cervical spine on the left side 5 cm hypermetabolic mass right apex invading the anterior upper right chest extending into the lower soft tissue neck 35 mm metastatic hypermetabolic mass retroclavicular on the right No pulmonary nodules noted. Abdomen and Pelvis: 14 mm hypermetabolic right adrenal mass 25 mm hypermetabolic area anterior to the left kidney Musculoskeletal: Marrow uptake is within normal range. IMPRESSION: Severely limited study secondary to kyphotic angulated body status Hypermetabolic mass at the angle of mandible on the left side extending caudad on the left side to the upper cervical spine 5 cm hypermetabolic mass at the right apex invading the anterior upper chest extending into the soft tissue of the lower neck 35 mm metastatic hypermetabolic retroclavicular mass on the right 14 mm hypermetabolic right adrenal mass 25 mm hypermetabolic area anterior to the left kidney Recommend MRI cervical spine follow-up pre and postcontrast Recommend CT chest abdomen pelvis post intravenous contrast follow-up
== END | disposition home or self-care (01) ==
PROVIDERS: Referring Provider Registered Nurse; Visit Provider Registered Nurse
DX: R22.0 Localized swelling, mass and lump, head (principal); R22.2 Localized swelling, mass and lump, trunk; E27.8 Other specified disorders of adrenal gland; C79.51 Secondary malignant neoplasm of bone; G89.29 Other chronic pain
CPT/HCPCS: 78815; A9552

== ENCOUNTER 2025-07-26 14:47 | Emergency (ER) | payer MEDICAID, SELFPAY ==
[2025-07-26 14:49] VITALS: BMI 13.3
[2025-07-26 14:59] VITALS: BP 152/82; PULSE 94; RESP 18; TEMP 36.7; O2SAT 95
--- NOTE | 2025-07-26 15:48 | XR_ITS ---
Examination: CT brain head without contrast. 2-D sagittal coronal reconstructions Date and time of exam:July 26, 2025, 1603 hrs. Indications: Onset right-sided leg weakness today CTDI: vol (mGy):47.3 DLP: (mGycm):934 Technique: Multiple CT axial sections of the brain have been obtained, 5 mm slice thickness. Contrast has not been administered. 2-D sagittal, coronal reconstructions have been obtained Low dose protocols were performed. One or more of the following dose reduction techniques were used; automated exposure control, adjustment of the mA and/or KV according to patient size, use of iterative reconstruction technique. Findings: No significant ventricular enlargement. Intra-axial or extra-axial hemorrhage density is not seen. No mass effect or midline shift Basal cisterns are not remarkable. Fourth ventricle is midline. Cranial vault intact. Acute right sphenoid sinusitis Impression: Negative for acute hemorrhage, mass effect or midline shift If right leg weakness persists, consider brain MRI MRA, stroke protocol, without contrast, follow-up
--- NOTE | 2025-07-26 15:58 | PD.EDEXREM ---
ED Extremity Problem RME/HPI General Chief complaint: General Adult/Misc Complain Stated complaint: SENT BY DR. ANAYA, SPINAL COMPRESSION Time Seen by Provider: 07/26/25 14:58 Arrival date/time: 07/26/25 14:47 RME / HPI RME / HPI Narrative: Mr. 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 Anaya who presented to [facility] emergency department 07/26/2025 for right lower extremity weakness. Patient was sent by Dr. Anaya patient's oncologist for concern of spinal compression. Patient seen at bedside complains of right-sided weakness, on examination there is significant right lower extremity weakness compared to left no other focal neurological deficits, complains of numbness though does have sensation intact in the right lower extremity, complains of numbness in the mid back region as well. Patient denies any bowel or bladder symptoms, no paresthesia/numbness on the left extremity. Related Data Previous Rx's ?Medication ?Instructions ?Recorded amlodipine 10 mg tablet 10 mg PO QDAY 1 month #30 tabs 07/02/25 gabapentin 300 mg capsule 300 mg PO TID PRN pain 1 month #60 07/02/25 caps hydrocodone 5 mg-acetaminophen 325 1 tab PO Q6H PRN pain 1 month #60 07/02/25 mg tablet tabs Allergies Allergy/AdvReac Type Severity Reaction Status Date / Time No Known Allergies Allergy Verified 07/26/25 14:49 Review of Systems Review of Systems Systems Reviewed: All systems reviewed, normal except as documented Past Medical History Past Medical History CARDIAC: Positive Hypertension RESPIRATORY: Positive Chronic Obstructive Pulmonary Disease (COPD) Surgical History SURGICAL: Positive Thyroidectomy Social History SMOKING STATUS: Current every day smoker SUBSTANCE USE: does not use ALCOHOL: Never ED Exam Narrative Physical exam: Physical Exam General: Awake and in no acute distress. Frail and cachectic male. Conversational and non-toxic appearing. HEENT: Normocephalic, atraumatic, mucous membranes moist. Heart: Regular rate and rhythm, no murmurs. Lungs: Clear to auscultation with no wheezing or crackles. Abdomen: Soft, nondistended, nontender, positive bowel sounds. ?No guarding or rebound tenderness. Neurologic: Alert and oriented x3, right lower extremity weakness noted, patient does have movements intact in the right lower extremity though is significantly weaker compared to the left. Sensations intact right lower extremities and back. Extremities: 2+ ankle edema noted Skin: No rash or ecchymoses. Course Course Course Narrative: CT head negative for hemorrhage CBC shows minimally elevated white count 11.7 hemoglobin stable at 12.3,, hematocrit 35.7, RBC 3.91, neutrophilia noted. CMP sodium 132, chloride 91, bicarb 32.4, BUN 5, creatinine 0.6 osmolality 262 ALT 9. Called MRI department, patient will not be able to obtain MRI today, patient is fairly stable, vitals have been fairly stable throughout the ED course. Discussed with patient, patient agreeable to go home today and return to emergency department in a.m. at 7:30 AM to obtain MRI. Quality Measures none Orders Category Date Time Status Production Scheduler Q4H START 00 Care 07/26/25 15:58 Active Continuous Pulse Oximetry NOW Care 07/26/25 15:58 Completed MRI Screening NOW Care 07/26/25 15:[address] head/brain wo con Stat Exams 07/26/25 15:48 Completed MR lumbar spine wo con Stat Exams 07/26/25 Ordered BNP [B-Type Natriuretic Peptide] Stat Lab 07/26/25 16:22 Completed CBC Stat Lab 07/26/25 16:22 Completed CMP [Comprehensive Metabolic Panel] Stat Lab 07/26/25 16:22 Completed CRP [C-Reactive Protein] Stat Lab 07/26/25 16:22 Completed ESR [Sed Rate (ESR)] Stat Lab 07/26/25 16:22 Completed Mag [Magnesium] Stat Lab 07/26/25 16:22 Completed PT [Prothrombin Time with INR] Stat Lab 07/26/25 16:22 Completed PTT [Partial Thromboplastin Time] Stat Lab 07/26/25 16:22 Completed Phosphorous Stat Lab 07/26/25 16:22 Completed KCL 10% Liq UDC 15 ML Med 07/26/25 16:30 Discontinued 40 meq PO X1 ONE Vital Signs Vital signs: Vital Signs Temperature 98.1 F 07/26/25 14:59 Pulse Rate 94 07/26/25 14:59 Respiratory Rate 18 07/26/25 14:59 Blood Pressure 152/82 H 07/26/25 14:59 Pulse Oximetry (%) 95 07/26/25 14:59 Oxygen Delivery Method Room Air 07/26/25 14:59 Extremity Problem MDM Narrative MDM Narrative:: #Right lower extremity weakness Suspicion of nerve impingement, suspicion of metastatic disease. Patient does have history of adenocarcinoma lung which has possible metastasis. Significant right lower extremity weakness noted, complains of paresthesias, no gross sensory deficits, no bladder or bowel deficits. Patient will need MRI lumbar spine to rule out any nerve impingement, MRI will not be obtained today Discussed with patient, agreeable to go home today and return to ED at 7:30 AM to obtain MRI. Patient will be discharged, discharge instructions as below Case discussed with Attending Physician Dr. John Arrington MD Internal Medicine PGY-2 Disclaimer: This note was dictated by speech recognition. Minor errors in internal review and audit compliance may be present due to voice recognition software. Patient data [facility] records [facility] Clinical information provided by:: patient Social determinants that could affect healthcare access:: none Patient has the following chronic illnesses:: As Above How is presenting disease/condition affected by chronic disease/condition?: exacerbated by Evaluation data The following diagnostics were reviewed and interpreted by me:: lab results and radiology exam(s) Lab and/or radiology exams considered but not ordered:: None Interpretation Summary: CT head negative for hemorrhage CBC shows minimally elevated white count 11.7 hemoglobin stable at 12.3,, hematocrit 35.7, RBC 3.91, neutrophilia noted. CMP sodium 132, chloride 91, bicarb 32.4, BUN 5, creatinine 0.6 osmolality 262 ALT 9. Medications / Prescriptions Medications or Prescriptions considered but not ordered:: None Medication administrations:: Medication Administration History Discontinued Medications Potassium Chloride (Potassium Chloride 10% 20 Meq/15 Ml Udc) 40 meq PO X1 ONE Stop: 07/26/25 16:31 None Consultations Consultation(s) initiated? (list below): No Diagnosis Extremity Problem Differential Diagnosis: other (Nerve impingement, Metastatic Disease) Most likely diagnosis given after review of the tests above:: Pending Workup Admission Indicated Admission indicated?: not indicated Admission Request Was there a request for admission?: No Disposition Plan Disposition Plan: Discharge Discharge Attestation Discharge Attestation: The patient and all family members were given an opportunity to ask questions and understood the discharge instructions. Discharge instructions specifically effects, indications for sooner follow up or return to the emergency department, and the expected course of current diagnosis. Patient condition: Stable Discharge Plan Plan Patient Disposition: HOME (Self Care) Patient condition on transfer: Stable Health Concerns: - You will need a MRI of your lumbar spine to rule out any nerve impingement for your right lower extremity weakness. We were unable to schedule you for your MRI today, please return to the emergency department tomorrow morning at 7:30 AM to obtain your MRI. - The CT scan of your head was negative for any hemorrhage. - There is mild hyponatremia for your lab work, follow-up with PCP regarding lab work, maintain adequate hydration encourage p.o. intake. Encourage high-protein diet. - Follow-up with primary care physician in 1 week, follow-up with oncologist outpatient. - Return to emergency department immediately if your symptoms worsen Prescriptions/Referrals Prescriptions/Med Rec: Continued amlodipine 10 mg tablet 10 mg PO QDAY 30 Days Qty: 30 2RF Rx Instructions: Take one tablet by mouth every day gabapentin 300 mg capsule 300 mg PO TID PRN (Reason: pain) 30 Days Qty: 60 2RF Rx Instructions: Take one tablet by mouth up to three times a day hydrocodone-acetaminophen 5-325 mg tablet 1 tab PO Q6H MDD 4 PRN (Reason: pain) 30 Days Qty: 60 0RF Rx Instructions: Take one tablet by mouth up to four times a day Referrals: Carlos Manuel Anaya MD [Physician, Radiation Oncology] - In 1 week Mohit Montesinos MD [Resident, Internal Medicine] - In 1 week No Primary/Family,Physician [Primary Care Provider] - In 1 week Problem List Clinical Impression: Right leg weakness Patient/Caregiver Discharge Instructions Education Materials: Preventing Falls Moving Safely ... Print Language: Japanese Stand Alone Forms: Lisa Award Info., Patient Portal Info Letter
[2025-07-26 16:33] LABS: Basophils # (Auto) 0.1 Thou/mm3 (0.0-0.2); Basophils % (Auto) 1 % (0-2.5); Eosinophils # (Auto) 0.0 Thou/mm3 (0.0-0.5); Eosinophils % (Auto) 0 % (0-10); Hematocrit 35.7 % (41.0-53.0); Hemoglobin 12.3 g/dL (13.5-16.0); Immature Granulocytes Auto 0.04 Thou/mm3 (0.00-0.00); Lymphocytes # (Auto) 0.7 Thou/mm3 (1.0-4.8); Lymphocytes % (Auto) 6 % (10-50); Mean Corpuscular HGB Conc 34.5 g/dl (31.0-37.0); Mean Corpuscular Hemoglobin 31.5 pg (25.0-35.0); Mean Corpuscular Volume 91 fL (80-100); Monocytes # (Auto) 1.2 Thou/mm3 (0.0-0.8); Monocytes % (Auto) 11 % (0-12); Neutrophils # (Auto) 9.6 Thou/mm3 (1.8-7.7); Neutrophils % (Auto) 82 % (37-80); Nucleated Red Blood Cell # 0.00 Thou/mm3 (0.00-0.00); Nucleated Red Blood Cell % 0 /100 WBC (0); Platelet Count 440 Thou/mm3 (140-440); RDW Standard Deviation 40.3 fL (35.1-43.9); Red Blood Count 3.91 Miln/mm3 (4.50-5.90); White Blood Count 11.7 Thou/mm3 (3.8-10.6)
[2025-07-26 16:48] LABS: INR 1.1 (0.9-1.3); Partial Thromboplastin Time 30.5 Seconds (22.0-36.0); Prothrombin Time 12.4 Seconds (9.0-12.2)
[2025-07-26 16:55] LABS: B-Type Natriuretic Peptide < 20 pg/mL (0-100)
[2025-07-26 16:57] VITALS: BP 147/89; PULSE 88; RESP 17; TEMP 36.8; O2SAT 95
[2025-07-26 16:57] LABS: Sed Rate (ESR) 41 mm/hr (0-20)
[2025-07-26 17:06] LABS: Alanine Aminotransferase 9 U/L (10-49); Albumin, Serum 3.7 gm/dL (3.4-4.8); Albumin/Globulin Ratio 1.4 (1.2-2.2); Alkaline Phosphatase 93 U/L (46-116); Anion Gap 9 (7-16); Aspartate Amino Transferase 11 U/L (0-34); BUN/Creatinine Ratio 8 Ratio (12-20); Bilirubin,Total 0.5 mg/dL (0.3-1.2); Blood Urea Nitrogen 5 mg/dL (9-23); C-Reactive Protein 0.5 mg/dL (0.0-0.9); Calcium 9.5 mg/dL (8.3-10.6); Calcium (Corrected) 9.7 mg/dL (8.5-10.1); Carbon Dioxide 32.4 mMol/L (20.0-31.0); Chloride 91 mMol/L (98-107); Creatinine (Component) 0.6 mg/dL (0.6-1.3); Estimated Creatinine Clearance 71.8 mL/min (>60); Globulin 2.7 gm/dL (2.3-3.5); Glucose 111 mg/dL (74-106); Magnesium 1.8 mg/dL (1.6-2.6); Osmolality,Calculated 262 (275-295); Phosphorous 3.9 mg/dL (2.4-5.1); Potassium 3.7 mMol/L (3.4-5.1); Sodium 132 mMol/L (136-145); Total Protein 6.4 gm/dL (5.7-8.2); eGFR > 60 See Note
[2025-07-26 18:15] VITALS: BP 148/94; PULSE 61; RESP 16; O2SAT 96
== END 2025-07-26 18:16 | disposition home or self-care (01) ==
DX: R53.1 Weakness (principal); I10 Essential (primary) hypertension; J44.9 Chronic obstructive pulmonary disease, unspecified; C34.91 Malignant neoplasm of unspecified part of right bronchus or lung; R64 Cachexia; D72.829 Elevated white blood cell count, unspecified; R20.2 Paresthesia of skin
CPT/HCPCS: 36415; 70450; 80053; 83735; 83880; 84100; 85025; 85610; 85652; 85730; 86140; 99283

== ENCOUNTER 2025-07-27 10:13 | Outpatient (RCR) | payer MEDICAID, SELFPAY ==
--- NOTE | 2025-07-17 14:56 | CTCTRTNOTE_ITS ---
[facility] [address] [place], [place] [address] Weekly Management Date: 07/17/2025 ?? Name: MEENAKSHI ACUÑA : 1960 Account #: ?? A. Patient is currently at 1500 cGy. B. Patient is tolerating treatment well. C. On hydrocodone and prednisone with improved symptoms. D. Completes palliative XRT 07/26/2025. Has consult with Dr. Perez 07/31/2025. Shall order MRI of the brain with contrast. PET scan and foundation 1 pending. Electronically signed by: Carlos Manuel Anaya M.D. 07/17/2025 2:54 PM
== END 2025-08-14 23:59 | disposition home or self-care (01) ==
LOC: SCTC 10:13
PROVIDERS: Visit Provider Radiology Therapeutic Radiology
DX: Z51.0 Encounter for antineoplastic radiation therapy (principal); C34.11 Malignant neoplasm of upper lobe, right bronchus or lung; K22.89 Other specified disease of esophagus; G62.9 Polyneuropathy, unspecified; Z87.891 Personal history of nicotine dependence; R59.0 Localized enlarged lymph nodes
CPT/HCPCS: 77336; 77412

== ENCOUNTER → 2025-07-27 | Outpatient (CLI) | payer MEDICAID, SELFPAY ==
--- NOTE | 2025-07-27 09:01 | XR_ITS ---
Examination: MRI brain with intravenous contrast TECHNIQUE: Axial sagittal coronal brain MRI images post intravenous administration 8 cc gadolinium Date and time: July 27, 2025 0952 hours INDICATIONS: Diagnosis malignant neoplasm upper lobe right bronchus or lung, weakness beginning one week ago, lung cancer diagnosis one month ago FINDINGS: Ventricles are normal in size and configuration. No abnormal enhancing cerebellar or cerebral lesion Pituitary is not enlarged No mass effect upon the ventricular system IMPRESSION: No abnormal enhancing cerebellar or cerebral metastatic lesions noted
== END | disposition home or self-care (01) ==
PROVIDERS: Referring Provider Radiology Therapeutic Radiology; Visit Provider Radiology Therapeutic Radiology
DX: R53.1 Weakness (principal); C34.11 Malignant neoplasm of upper lobe, right bronchus or lung
CPT/HCPCS: 70552; A9577